=== PATIENT | female | born 1930 | race Caucasian/White ===

== ENCOUNTER 2016-11-02 09:25 | Inpatient (IN) | payer OTHER ==
[~2016-11-02] VITALS: Ht 160 cm; Wt 60.3 kg
--- NOTE | 2016-11-02 10:34 | ED CARDIAC/CP/PALPITATIONS ---
History of Present Illness General Chief Complaint: Chest Pain Stated Complaint: CHEST PAIN LAST NIGHT Source: patient Exam Limitations: no limitations Vital Signs & Intake/Output Vital Signs & Intake/Output Vital Signs Date Time Temp Pulse Resp B/P Pulse O2 O2 Flow FiO2 Ox Delivery Rate 11/02 1152 57 20 153/98 95 Nasal 2.0L Cannula 11/02 0939 98.4 65 16 166/79 95 Room Air Allergies Coded Allergies: No Known Allergies (11/02/16) Reconcile Medications Alprazolam 0.25 MG TABLET 1 TAB PO BIDP PRN ANXIETY (Reported) Aspirin (Aspirin*) 81 MG TAB.CHEW 1 TAB PO DAILY HEART HEALTH Ca/D3/Mag#11/Zinc/Computerized Mill Mill Recorder/Skinny/Bor (Caltrate 600+D Plus Tablet) 600 MG-800 TABLET 1 TAB PO DAILY SUPPLEMENT (Reported) Cholecalciferol (Vitamin D3) (Vitamin D) 5,000 UNIT TABLET 1 TAB PO DAILY VITAMIN D (Reported) Levothyroxine Sodium 75 MCG TABLET 1 TAB PO DAILY HYPOTHYROIDISM (Reported) Omeprazole 20 MG CAPSULE.DR 1 TAB PO AT BEDTIME HEART BURN Triage Note: PT STATES SHE HASN'T BEEN SLEEPING AT NIGHT BECAUSE SHE HAS BEEN HAVING CHEST PALPATATIONS WHEN SHE LAYS DOWN. PT DID HAVE SYNCOPAL EPISODE THIS AM AND WAS CAUGHT BY HER GRANDSON. PT DENIES ANY CARDIAC HX. PT HAD A BLADDER INFECTION AND STATES SHE WAS ON ABX AND JUST GOT OVER THAT. Triage Nurses Notes Reviewed? yes Onset: Abrupt Duration: week(s): (1), waxing and waning Timing: recent history Quality/Severity: moderate Associated Symptoms: abdominal pain, syncope, chest pain HPI: This is an 86 over female with history of hypertension and hypothyroidism who presents from home for chief complaint of chest pain that she experiences at night for the past one week. This morning she had a syncopal episode. No head trauma. According to the daughter she started complaining of heartburn initially rated no history of cardiac disease that she knows of. She is a nonsmoker nondrinker. Currently her chest pain has resolved. She states that when she walks around during the daytime or chest pain gets better. Past History Travel History Traveled to [place] past 21 day No Medical History Any Pertinent Medical History? see below for history Cardiovascular: hypertension Psychiatric: anxiety Endocrine: hypothyroidism Surgical History Surgical History: non-contributory Psychosocial History What is your primary language Somali Tobacco Use: Never used ETOH Use: denies use Illicit Drug Use: denies illicit drug use Family History Hx Contributory? No Review of Systems Review of Systems Constitutional: Reports: malaise. Denies: chills, fever. EENTM: Reports: no symptoms. Respiratory: Denies: cough, short of breath, sputum production. Cardiovascular: Reports: chest pain, syncope. Denies: edema, palpitations, peripheral edema. GI: Denies: abdominal pain. Genitourinary: Reports: no symptoms. Musculoskeletal: Reports: no symptoms. Skin: Reports: no symptoms. Neurological/Psychological: Reports: no symptoms. Hematologic/Endocrine: Denies: bruising, bleeding, polyuria, polydipsia. Immunologic/Allergic: Denies: splenectomy. All Other Systems: Reviewed and Negative Physical Exam Physical Exam General Appearance: alert, awake, anxious, mild distress, thin Head: atraumatic, normal appearance Eyes: Bilateral: normal appearance, PERRL, EOMI. Ears, Nose, Throat: normal pharynx, normal ENT inspection Neck: normal inspection, supple, full range of motion Respiratory: normal breath sounds, chest non-tender, no respiratory distress Cardiovascular: regular rate/rhythm Peripheral Pulses: 2+ radial (R), 2+ radial (L) Gastrointestinal: normal bowel sounds, soft, non-tender Extremities: normal inspection, normal range of motion, no edema Neurologic/Psych: no motor/sensory deficits, awake, alert, oriented x 3 Skin: intact, normal color, warm/dry Core Measures ACS in differential dx? Yes ASA ordered for poss ACS? Yes-ordered Severe Sepsis Present: No Septic Shock Present: No Progress Differential Diagnosis: AMI, aortic dissection, musculoskeletal pain, myocarditis, pericarditis, pneumothorax, pulmonary embolism, unstable angina, WPW syndrome Plan of Care: Orders Procedure Date/time Status Heart Healthy Diet 11/02 D Active TROPONIN LEVEL 11/02 2200 Active EKG 11/02 2200 Active TROPONIN LEVEL 11/02 1600 Active EKG 11/02 1600 Active CTA CHEST-PULMONARY EMBOLISM 11/02 1254 Active [id number] DOPPLER 11/02 1238 Active ECHOCARDIOGRAM 11/02 1238 Active Saline Lock 11/02 1235 Active Pathway - chart 11/02 1235 Active House Staff 11/02 1235 Active Patient Data 11/02 1159 Active Admit to inpatient 11/02 1157 Active Vital Signs 11/02 1157 Active Code Status 11/02 1157 Active Add-on Test (ER Only) 11/02 1126 Active FingerStick- Glucose 11/02 1048 Active THYROID STIMULATING HORMONE 11/02 1039 Active THYROXINE 11/02 1039 Active LIPID PANEL 11/02 1039 Active GLYCOSYLATED HGB 11/02 1039 Active D-DIMER 11/02 1039 Complete MISTAKE 11/02 1035 Active Telemetry/Erp Consultant 11/02 1035 Active URINALYSIS 11/02 1035 Active TROPONIN LEVEL 11/02 1035 Active PARTIAL THROMBOPLASTIN TIME 11/02 1035 Complete PROTHROMBIN TIME 11/02 1035 Complete COMPREHENSIVE METABOLIC PANEL 11/02 1035 Active CBC WITHOUT DIFFERENTIAL 11/02 1035 Complete EKG 11/02 0926 Active Lab Add-on Test 11/02 UNK Active VTE Mechanical Prophylaxis 11/02 UNK Active Heat/Cold Therapy 11/02 UNK Active Current Medications Sig/[place] Start time Last Medication Dose Stop Time Status Admin Aspirin 81 MG DAILY 11/03 1000 AC (Aspirin) Metoprolol Tartrate 25 MG DAILY 11/03 1000 UNVr (Lopressor) Levothyroxine Sodium 0.075 MG DAILY AC 11/03 0700 AC (Synthroid) Docusate Sodium 100 MG BID 11/02 2200 AC (Colace) Polyethylene Glycol 17 GM AT BEDTIME 11/02 2200 AC (Miralax) Senna/Docusate Sodium 1 TAB AT BEDTIME 11/02 2200 AC (Senokot S) Acetaminophen 650 MG Q6P PRN 11/02 1245 AC (Tylenol) Acetaminophen/ 1 TAB Q6P PRN 11/02 1245 AC Hydrocodone Bitart (Vicodin) Diphenhydramine HCl 25 MG Q6P PRN 11/02 1245 AC (Benadryl) Hydromorphone HCl 0.5 MG Q4P PRN 11/02 1245 AC (Dilaudid) Ondansetron HCl 4 MG Q6P PRN 11/02 1245 AC (Zofran) Laboratory Tests 11/02/16 1039: Hemoglobin A1c Pending 11/02/16 1039: Anion Gap 12, Estimated GFR 43 L, BUN/Creatinine Ratio 30.0 H, Glucose 86, Calcium 9.6, Total Bilirubin 0.5, AST 49 H, ALT 49, Alkaline Phosphatase 81, Troponin I 0.16 *H, Total Protein 7.3, Albumin 4.0, Globulin 3.3, Albumin/ Globulin Ratio 1.2, Triglycerides 365 H, Cholesterol 241 H, LDL Cholesterol, Calc 133 H, HDL Cholesterol 35 L, Cholesterol/HDL Ratio 7 H, TSH Pending, Thyroxine (T4) Pending, PT 10.8, INR 1.03, APTT 30, D-Dimer 2608 H, CBC w Diff NO MAN DIFF REQ, RBC 4.03 L, MCV 93.4, MCH 31.8 H, RDW 13.6, MPV 8.3, Gran % 59.6, Lymphocytes % 24.7, Monocytes % 13.1 H, Eosinophils % 1.9, Basophils % 0.7, Absolute Granulocytes 3.6, Absolute Lymphocytes 1.5, Absolute Monocytes 0.8 H, Absolute Eosinophils 0.1, Absolute Basophils 0, PUBS MCHC 34.1 EKG, TELE MONITOR, LABS. CHEST PAIN FREE AT THIS TIME. ELEVATED TROPONIN. ASPIRIN ORDERED. DR COMBS CONSULTED. PATIENT ADMITTED TO HOSPITALIST SERVICE. (RADHA PERSON,ESTHELA) Diagnostic Imaging: Viewed by Me: Radiology Read, CT Scan. Discussed w/RAD: Radiology Read, CT Scan. Initial ED EKG: NSR, LAD, LAFB Rhythm Strip: normal sinus rhythm Comments: PATIENT: TAMMIE REESE PRESENT AGE: 86 PATIENT ACCOUNT NO: [id number] : 30 LOCATION: [facility] ORDERING PHYSICIAN: ESTHELA GARCIA MD SERVICE DATE: 11/02/16 EXAM TYPE: RAD - XRY-CHEST XRAY, PA AND LATERAL Addendum: IMPRESSION: No acute findings; no evidence of cardiomegaly or congestive heart failure. Addendum Signed by: AMY ALONSO MD 11/02/16 1298 EXAMINATION: XR CHEST CLINICAL INFORMATION: Chest pain and syncope. COMPARISON: None. TECHNIQUE: PA and lateral views of the chest were obtained. FINDINGS: Lungs are well expanded and clear. There is no pulmonary consolidation, edema or pleural effusion. Cardiac silhouette is normal in size. There is atherosclerotic calcification of the aortic arch. Bones appear diffusely osteopenic and there is hyperkyphosis and dextroscoliosis of the thoracic spine. There is [id number] multilevel disc space narrowing and osteophyte formation in the mid to upper thoracic spine. IMPRESSION: No acute findings; evidence of cardiomegaly or congestive heart failure. DICTATED BY: AMY ALONSO MD DATE/TIME DICTATED:11/02/161103 CONSTRUCTION AREA MANAGER:JENNIFER DATE/TIME TRANSCRIBED:11/02/161103 CONFIDENTIAL, DO NOT COPY WITHOUT APPROPRIATE AUTHORIZATION. <Electronically signed in Other Vendor System> SIGNED BY: AMY ALONSO MD 11/02/16 1111 PATIENT: TAMMIE REESE PRESENT AGE: 86 PATIENT ACCOUNT NO: [id number] : 30 LOCATION: [facility] ORDERING PHYSICIAN: ESTHELA GARCIA MD SERVICE DATE: 11/02/16 EXAM TYPE: CAT - CTA CHEST-PULMONARY EMBOLISM EXAMINATION: CT ANGIOGRAM OF THE CHEST WITH CONTRAST (CT PULMONARY ANGIOGRAM FOR PE) CLINICAL INFORMATION: 86-year-old female with syncope and elevated troponin level. Evaluate for pulmonary embolism. COMPARISON: No pertinent prior studies are available for comparison. TECHNIQUE: Prior to contrast administration, noncontrast localization images were obtained. Subsequently, multidetector volumetric imaging was performed from the thoracic inlet to below the diaphragms following the administration of 95 mL of Optiray 320 intravenous contrast. No contrast reaction reported. Sagittal, coronal, and MIP oblique sagittal reformatted images were obtained on the CT workstation, uploaded to PACS, and reviewed. Total exam dose-length product 206 mGy-cm FINDINGS: QUALITY OF STUDY/CONTRAST BOLUS: Excellent. PULMONARY ARTERIES: Pulmonary arteries are normal in caliber. No filling defects within the main, lobar or segmental vessels. THORACIC AORTA: There is atherosclerotic calcification of the thoracic aorta. The contrast bolus was well timed for pulmonary arteries and, therefore, there is suboptimal opacification of the aortic lumen. However, no aortic dissection is identified. LUNGS AND PLEURA: Trachea and central airways are widely patent and normal in caliber. No pulmonary edema, focal consolidation, pleural effusion or pneumothorax. Mild atelectasis in the dependent aspect of each lower lobe. MEDIASTINUM: The heart size is normal. Aetr-pl-xtzztscs atherosclerotic calcification of the coronary arteries. No pericardial effusion. No evidence of septal bowing or right heart strain. The visualized inferior portion of the thyroid gland is atrophied. The esophagus is grossly unremarkable. LYMPHATICS: No axillary, hilar, mediastinal or internal mammary lymphadenopathy. UPPER ABDOMEN: No acute findings. There is atherosclerotic calcification of the visualized abdominal aorta and splenic artery. OSSEOUS STRUCTURES: Bones appear diffusely osteopenic. Multilevel disc degeneration with osteophyte formation of the hyperkyphotic thoracic spine. No aggressive osseous lesions. There is a hemangioma of the T9 vertebral body and small hemangioma of the T11 vertebral body. IMPRESSION: No acute findings. No evidence of pulmonary embolism. DICTATED BY: AMY ALONSO MD DATE/TIME DICTATED:11/02/161324 CONSTRUCTION AREA MANAGER:JENNIFER DATE/TIME TRANSCRIBED:11/02/161324 CONFIDENTIAL, DO NOT COPY WITHOUT APPROPRIATE AUTHORIZATION. <Electronically signed in Other Vendor System> SIGNED BY: AMY ALONSO MD 11/02/16 1339 Departure Departure Time of Disposition: 1154 Disposition: STILL A PATIENT Condition: Stable Clinical Impression Primary Impression: NSTEMI (non-ST elevated myocardial infarction) Secondary Impressions: Syncope Referrals: JANIE PERSON,JULIO CÉSAR Jewell (PCP/Family) Referred to [facility] as new patient No Departure Forms: Customer Survey General Discharge Information Prescriptions: Current Visit Scripts Aspirin (Aspirin*) 1 TAB PO DAILY #30 Omeprazole 1 TAB PO AT BEDTIME #30 Admission Note Spoke With: ANA BRUSH M.D Documentation of Exam: Documentation of any treatments & extenuating circumstances including Concerns Regarding Discharge (functional status, medication knowledge or non-compliance, living conditions, etc.) that warrant an admission rather than observation: [ TELE MONITOR, OXYGEN, ASPIRIN, ECHOCARDIOGRAM, SERIAL EKG, SERIAL TROPONIN, STRESS TEST] Critical Care Note Critical Care Note Critical Care Time: 30-74 min
[2016-11-02 10:59] LABS: ABSOLUTE BASOPHIL COUNT 0 /CUMM (0.0-0.2); ABSOLUTE EOSINOPHIL COUNT 0.1 /CUMM (0.0-0.7); ABSOLUTE GRANULOCYTE CT 3.6 /CUMM (1.4-6.5); ABSOLUTE LYMPH COUNT 1.5 /CUMM (1.2-3.4); ABSOLUTE MONOCYTE COUNT 0.8 /CUMM (0.10-0.60); BASOPHIL % 0.7 % (0.0-2.0); EOSINOPHIL % 1.9 % (0-5); GRANULOCYTE % 59.6 % (42.2-75.2); HEMATOCRIT 37.7 % (37-47); MEAN CORPUSCULAR HGB 31.8 PG (27.0-31.0); MEAN CORPUSCULAR HGB CONC 34.1 G/DL (33.0-37.0); MEAN CORPUSCULAR VOLUME 93.4 FL (81.0-99.0); MEAN PLATELET VOLUME 8.3 FL (7.4-10.4); PLATELET COUNT 220 /CUMM (130-400); PT 10.8 SEC (9.4-12.5); PTT 30 SEC (25-37); RBC DISTRIBUTION WIDTH 13.6 % (11.5-14.5); RED BLOOD CELL CT 4.03 /CUMM (4.20-5.40); WHITE BLOOD CELL COUNT 6.1 /CUMM (4.8-10.8)
--- NOTE | 2016-11-02 11:11 | RADIOLOGY REPORT ---
EXAMINATION: XR CHEST CLINICAL INFORMATION: Chest pain and syncope. COMPARISON: None. TECHNIQUE: PA and lateral views of the chest were obtained. FINDINGS: Lungs are well expanded and clear. There is no pulmonary consolidation, edema or pleural effusion. Cardiac silhouette is normal in size. There is atherosclerotic calcification of the aortic arch. Bones appear diffusely osteopenic and there is hyperkyphosis and dextroscoliosis of the thoracic spine. There is [id number]-[id number] multilevel disc space narrowing and osteophyte formation in the mid to upper thoracic spine. IMPRESSION: No acute findings; evidence of cardiomegaly or congestive heart failure.
--- NOTE | 2016-11-02 12:28 | History & Physical ---
HIEN PERSON,[facility] 11/02/16 1227: General Information and HPI History of Present Illness: Bambi Kim is a a sexual woman with a medical history of hypertension hypothyroidism and anxiety who complains of approximately one week of chest discomfort while lying recumbent and only occurs at night, accompanied by palpitations. This is the total lack of sleep. This morning she had an episode of syncope without any prodrome. She also complains of symptoms of acid reflux. She is chest pain-free right now. Circumstances were syncope occurred in the kitchen, her nephew was witnessed fall, apparently she did not injure her head. She is drinking water and was not exerting herself. She had no chest pain or palpitations prior to that. She is recently treated for a UTI with Bactrim. She is able to sleep flat, and the chest pain is intermittent. Chest pain does change with position, worsening when she lies recumbent and improving when she is leaning forward. She is pretty activated 6-year-old, working out at the gym 3 times a week and reports no chest pain with exertion. She denies any lower extremity swelling cough nausea vomiting diarrhea or lightheadedness visual change or any other symptoms after reviewing detail. She does relate a history of clots and heart attacks in her family, her daughter has had 2 early myocardial infarctions and a clotting disorder and sees a ore dryer. The patient herself denies any calf pain. She sees only her primary doctor, and has thus far been able to avoid seeing any specialists and has been in overall good state of health Allergies/Medications Allergies: Coded Allergies: No Known Allergies (11/02/16) Past History Travel History Traveled to [place] past 21 day No Medical History Cardiovascular: hypertension Psychiatric: anxiety Endocrine: hypothyroidism Surgical History Surgical History: none Past Family/Social History Family History Relations & Conditions if any DAUGHTER Acute myocardial infarction Blood clots Psychosocial History Where do you live? Home Who Do You Live With? spouse Primary Language: Syrian Smoking Status: Never Smoked ETOH Use: denies use Illicit Drug Use: denies illicit drug use Review of Systems Review of Systems Constitutional: Denies: see HPI. Exam & Diagnostic Data Last 24 Hrs of Vital Signs/I&O Vital Signs Date Time Temp Pulse Resp B/P Pulse O2 O2 Flow FiO2 Ox Delivery Rate 11/02 1444 97.8 64 20 108/60 96 Room Air 11/02 1152 57 20 153/98 95 Nasal 2.0L Cannula 11/02 0939 98.4 65 16 166/79 95 Room Air Intake & Output 11/02 1600 11/02 0800 11/02 0000 Intake Total Output Total Balance Patient 133 lb Weight Physical Exam General Appearance Alert, Oriented X3, Cooperative, No Acute Distress Skin No Rashes, No Breakdown, No Significant Lesion HEENT Atraumatic, PERRLA, EOMI, Mucous Membr. moist/pink Neck Supple, No JVD, No thryomegaly, +2 Carotid Pulse wo Bruit, No LAD Lymphatic Cervical nl Cardiovascular Regular Rate, Normal S1, Normal S2, No Murmurs, Gallops, Rubs Lungs Clear to Auscultation, Normal Air Movement Abdomen Normal Bowel Sounds, Soft, No Tenderness, No Hepatospenomegaly, No Masses Neurological Normal Speech, Strength at 5/5 X4 Ext, Normal Tone Extremities No Clubbing, No Cyanosis, No Edema, Normal Pulses, No Tenderness/ Swelling Vascular Normal Pulses Last 24 Hrs of Labs/Carl: Laboratory Tests 11/02/16 1039: Hemoglobin A1c Pending 11/02/16 1039: Anion Gap 12, Estimated GFR 43 L, BUN/Creatinine Ratio 30.0 H, Glucose 86, Calcium 9.6, Total Bilirubin 0.5, AST 49 H, ALT 49, Alkaline Phosphatase 81, Troponin I 0.16 *H, Total Protein 7.3, Albumin 4.0, Globulin 3.3, Albumin/ Globulin Ratio 1.2, Triglycerides 365 H, Cholesterol 241 H, LDL Cholesterol, Calc 133 H, HDL Cholesterol 35 L, Cholesterol/HDL Ratio 7 H, TSH 2.550, Thyroxine (T4) 6.3, PT 10.8, INR 1.03, APTT 30, D-Dimer 2608 H, CBC w Diff NO MAN DIFF REQ, RBC 4.03 L, MCV 93.4, MCH 31.8 H, RDW 13.6, MPV 8.3, Gran % 59.6 , Lymphocytes % 24.7, Monocytes % 13.1 H, Eosinophils % 1.9, Basophils % 0.7, Absolute Granulocytes 3.6, Absolute Lymphocytes 1.5, Absolute Monocytes 0.8 H, Absolute Eosinophils 0.1, Absolute Basophils 0, PUBS MCHC 34.1 Diagnostic Data EKG Results Sinus with CXR Results TECHNIQUE: PA and lateral views of the chest were obtained. FINDINGS: Lungs are well expanded and clear. There is no pulmonary consolidation, edema or pleural effusion. Cardiac silhouette is normal in size. There is atherosclerotic calcification of the aortic arch. Bones appear diffusely osteopenic and there is hyperkyphosis and dextroscoliosis of the thoracic spine. There is [id number] multilevel disc space narrowing and osteophyte formation in the mid to upper thoracic spine. IMPRESSION: No acute findings; evidence of cardiomegaly or congestive heart failure. Other Results COMPARISON: No pertinent prior studies are available for comparison. TECHNIQUE: Prior to contrast administration, noncontrast localization images were obtained. Subsequently, multidetector volumetric imaging was performed from the thoracic inlet to below the diaphragms following the administration of 95 mL of Optiray 320 intravenous contrast. No contrast reaction reported. Sagittal, coronal, and MIP oblique sagittal reformatted images were obtained on the CT workstation, uploaded to PACS, and reviewed. Total exam dose-length product 206 mGy-cm FINDINGS: QUALITY OF STUDY/CONTRAST BOLUS: Excellent. PULMONARY ARTERIES: Pulmonary arteries are normal in caliber. No filling defects within the main, lobar or segmental vessels. THORACIC AORTA: There is atherosclerotic calcification of the thoracic aorta. The contrast bolus was well timed for pulmonary arteries and, therefore, there is suboptimal opacification of the aortic lumen. However, no aortic dissection is identified. LUNGS AND PLEURA: Trachea and central airways are widely patent and normal in caliber. No pulmonary edema, focal consolidation, pleural effusion or pneumothorax. Mild atelectasis in the dependent aspect of each lower lobe. MEDIASTINUM: The heart size is normal. [id number] atherosclerotic calcification of the coronary arteries. No pericardial effusion. No evidence of septal bowing or right heart strain. The visualized inferior portion of the thyroid gland is atrophied. The esophagus is grossly unremarkable. LYMPHATICS: No axillary, hilar, mediastinal or internal mammary lymphadenopathy. UPPER ABDOMEN: No acute findings. There is atherosclerotic calcification of the visualized abdominal aorta and splenic artery. OSSEOUS STRUCTURES: Bones appear diffusely osteopenic. Multilevel disc degeneration with osteophyte formation of the hyperkyphotic thoracic spine. No aggressive osseous lesions. There is a hemangioma of the T9 vertebral body and small hemangioma of the T11 vertebral body. IMPRESSION: No acute findings. No evidence of pulmonary embolism. Assessment/Plan Assessment: Bambi Kim is a 86 -year-old woman with a medical history of hypertension hypothyroidism and anxiety who presents with chest discomfort that occurs with lying recumbent in changes with position, and is pleuritic. Although not hypoxic, she is having elevated troponin, and a d-dimer. Initial CAT scan did not show any pulmonary embolus, and physical examination wasn't consistent with a lower shotty DVT however this is not specific enough. This patient given her age and presentation and positive enzymes should have further workup and monitoring the next 24-48 hours on telemetry. Differential should include acute coronary syndrome pericarditis DVT or pleurisy due to a host of other causes such as autoimmune disease or occult malignancy. An elevated d- dimer in the absence of other processes may be a herald of underlying malignant disease. Outpatient records including colonoscopy should be obtained. - Problems - Acute chest pain Non-ST elevation myocardial infarction Elevated d-dimer? Malignancy versus autoimmune disorder Hypertension Hypothyroidism Anxiety disorder - Plan - Continues cardiac monitoring Obtain serial enzymes and EKG Obtain echocardiogram Obtain Doppler ultrasound of lower extremities to rule out DVT Guaiac all stool Await cardiology consultation Continue metoprolol 25 mg twice a day Continue Synthroid Check TSH T4 Continue alprazolam DVT prophylaxis with heparin Full code As Ranked By This Provider Problem List: 1. NSTEMI (non-ST elevated myocardial infarction) Core Measures/Miscellaneous Acute Coronary Syndrome ACS Diagnosis: Yes Cerebrovascular Accident CVA/TIA Diagnosis: No Congestive Heart Failure CHF Diagnosis: No Venous Thromboembolism VTE Risk Factors: Cancer/chemo/oth therapy VTE Prophylaxis Ordered Inpt: [facility] prophylaxis d/t: No contraindications No VTE Pharm Prophylaxis d/t: No contraindications VTE Diagnosis: No VTE Type: NONE VTE Confirmed by (Test): NONE Severe Sepsis Severe Sepsis Present: No Septic Shock Septic Shock Present: No Miscellaneous Documentation Attending Case Discussed With: ANA BRUSH M.D Primary Care Physician: JULIO CÉSAR LIMA MD Patient sees these Specialists None Level of Patient Care: Telemetry ANA BRUSH MD 11/02/16 1452: General Information and HPI Allergies/Medications Home Med list Alprazolam 0.25 MG TABLET 1 TAB PO BIDP PRN ANXIETY (Reported) Aspirin (Aspirin*) 81 MG TAB.CHEW 1 TAB PO DAILY Prized Ca/D3/Mag#11/Zinc/Home Health Attendant/Skinny/Bor (Caltrate 600+D Plus Tablet) 600 MG-800 TABLET 1 TAB PO DAILY SUPPLEMENT (Reported) Cholecalciferol (Vitamin D3) (Vitamin D) 5,000 UNIT TABLET 1 TAB PO DAILY VITAMIN D (Reported) Levothyroxine Sodium 75 MCG TABLET 1 TAB PO DAILY HYPOTHYROIDISM (Reported) Omeprazole 20 MG CAPSULE. 1 TAB PO AT BEDTIME HEART BURN Attending MD Review Statement Attending Statement Attending MD Statement: examined this patient, discuss w/resident/PA/SINGLE FOLD MACHINE OPERATOR, agreed w/resident/PA/SINGLE FOLD MACHINE OPERATOR, discussed with family, reviewed EMR data (avail), discussed with nursing, discussed with case mgmt, amended to note Attending Assessment/Plan: Patient seen and examined. Resting comfortably and not in acute distress. She reports pleuritic chest pain going on for about a week. Symptoms are worse when she lies down and relieved when she leans forward. Denies any associated shortness of breath or cough. Denies any associated palpitations. Denies similar history in the past. She was brought into the ER for evaluation today after she had an episode of syncope this morning. She was standing drinking water when suddenly without any history passed out falling to the floor. Because the head trauma. She was brought in here for evaluation. She arises afebrile hemodynamically stable. She denies any chest pain or focal pain. Emergency room she was found hemodynamically stable with no ischemic changes on her EKG. Initial troponin level is mildly elevated. D-dimer was obtained that was markedly elevated however CT scan rules out thromboembolism. On examination she is alert and 1993 no focal deficit. She has no jugular venous distention. She has a 2/6 systolic normal. She has fair entry bilaterally with no added sounds. Abdomen is soft and nontender. She has no peripheral edema. Problems: 1. Pleuritic chest pain going on for 1 week. 2. Abnormal troponins 3. Abnormal creatinine; unknown baseline 4. Syncope Plan: -Admit to telemetry service for further cardiac monitoring. -Trend troponins. Check fasting lipid panel in the morning. -Obtain echocardiogram to rule out pericarditis and evaluate for wall motion abnormalities in the setting of subacute chest pain and elevated troponins as well as valvular abnormalities in the setting of syncope -Cardiology consultation for further ischemic workup. -Hydrate with half normal saline at 100 mL an hour for 2 L giving her contrast load and underlining renal insufficiency. Repeat serum chemistry tomorrow. Obtain baseline creatinine level from her primary care provider. -DVT prophylaxis with
[2016-11-02] MEDS ORDERED: ALPRAZOLAM0.25 M1 PO (13:16)
[2016-11-02] MEDS ORDERED: METOPROLOL TART25 M1 PO (13:17)
[2016-11-02] MEDS ORDERED: LEVOTHYROXINE75 MCG PO (13:17)
[2016-11-02] MEDS ORDERED: CALTRATE 600+D1 EACH PO (13:18)
[2016-11-02] MEDS ORDERED: VITAMIN D5000 UNIT PO (13:19)
--- NOTE | 2016-11-02 13:39 | CT SCAN REPORT ---
EXAMINATION: CT ANGIOGRAM OF THE CHEST WITH CONTRAST (CT PULMONARY ANGIOGRAM FOR PE) CLINICAL INFORMATION: 86-year-old female with syncope and elevated troponin level. Evaluate for pulmonary embolism. COMPARISON: No pertinent prior studies are available for comparison. TECHNIQUE: Prior to contrast administration, noncontrast localization images were obtained. Subsequently, multidetector volumetric imaging was performed from the thoracic inlet to below the diaphragms following the administration of 95 mL of Optiray 320 intravenous contrast. No contrast reaction reported. Sagittal, coronal, and MIP oblique sagittal reformatted images were obtained on the CT workstation, uploaded to PACS, and reviewed. Total exam dose-length product 206 mGy-cm FINDINGS: QUALITY OF STUDY/CONTRAST BOLUS: Excellent. PULMONARY ARTERIES: Pulmonary arteries are normal in caliber. No filling defects within the main, lobar or segmental vessels. THORACIC AORTA: There is atherosclerotic calcification of the thoracic aorta. The contrast bolus was well timed for pulmonary arteries and, therefore, there is suboptimal opacification of the aortic lumen. However, no aortic dissection is identified. LUNGS AND PLEURA: Trachea and central airways are widely patent and normal in caliber. No pulmonary edema, focal consolidation, pleural effusion or pneumothorax. Mild atelectasis in the dependent aspect of each lower lobe. MEDIASTINUM: The heart size is normal. [id number] atherosclerotic calcification of the coronary arteries. No pericardial effusion. No evidence of septal bowing or right heart strain. The visualized inferior portion of the thyroid gland is atrophied. The esophagus is grossly unremarkable. LYMPHATICS: No axillary, hilar, mediastinal or internal mammary lymphadenopathy. UPPER ABDOMEN: No acute findings. There is atherosclerotic calcification of the visualized abdominal aorta and splenic artery. OSSEOUS STRUCTURES: Bones appear diffusely osteopenic. Multilevel disc degeneration with osteophyte formation of the hyperkyphotic thoracic spine. No aggressive osseous lesions. There is a hemangioma of the T9 vertebral body and small hemangioma of the T11 vertebral body. IMPRESSION: No acute findings. No evidence of pulmonary embolism.
[2016-11-02 14:44] VITALS: BP 108/60
--- NOTE | 2016-11-02 14:49 | Admission Certification ---
Admission Certification Certification Statement - As attending physician, I certify that at the time of - admission, based on clinical presentation, severity of - symptoms, need for further diagnostic testing and - therapeutic interventions, and risk of adverse outcomes - without in-hospital treatment, in my clinical assessment, - this patient requires an acute hospital stay for a minimum - of two nights or longer. I have also considered psychsocial - factors such as support system, advanced age, financial - issues, cognitive issues, and failed out-patient treatments, - past re-admission history, safety of patient, and lack of - compliance as applicable. Specific rationale supporting this admission is: Patient presents with chest pain, syncope and positive troponins. She requires further cardiac workup and telemetry monitoring.
[2016-11-02 15:30] VITALS: BP 104/70
--- NOTE | 2016-11-02 20:50 | Cons- Cardiology ---
General Information and HPI Consulting Request Date of Consult: 11/02/16 Requested By: ANA BRUSH M.D Reason for Consult: chest pain, syncope History of Present Illness: The patient is a an 86-year-old female with history of hypertension, anxiety, and hypothyroid who presents after syncopal episode with chest discomfort. On the morning of admission she had an episode of syncope without any prodrome. This syncope occurred while she was standing in the kitchen, and was witnessed by family member. This was preceded by 1 week of chest discomfort which occurred while lying flat, accompanied by palpitations. The chest discomfort is worse when continue recumbent position, and improved with leaning forward. She is physically active. She works out at the gym 3 times per week. No exertional chest discomfort. No edema. No cough. No nausea or vomiting. No diaphoresis. No lightheadedness or dizziness. Allergies/Medications Allergies: Coded Allergies: No Known Allergies (11/02/16) Home Med List: Alprazolam 0.25 MG TABLET 1 TAB PO BIDP PRN ANXIETY (Reported) Aspirin (Aspirin*) 81 MG TAB.CHEW 1 TAB PO DAILY [place] Ca/D3/Mag#11/Zinc/Pipelayer/Skinny/Bor (Caltrate 600+D Plus Tablet) 600 MG-800 TABLET 1 TAB PO DAILY SUPPLEMENT (Reported) Cholecalciferol (Vitamin D3) (Vitamin D) 5,000 UNIT TABLET 1 TAB PO DAILY VITAMIN D (Reported) Levothyroxine Sodium 75 MCG TABLET 1 TAB PO DAILY HYPOTHYROIDISM (Reported) Omeprazole 20 MG CAPSULE.DR 1 TAB PO AT BEDTIME HEART BURN Current Medications: Current Medications Sig/[place] Start time Last Medication Dose Route Stop Time Status Admin Acetaminophen 650 MG Q6P PRN 11/02 1245 AC PO Acetaminophen/ 1 TAB Q6P PRN 11/02 1245 AC Hydrocodone Bitart PO Alprazolam 0.25 MG Q12 11/02 1316 AC 11/02 PO 11/09 1315 2115 Aspirin 81 MG DAILY 11/03 1000 AC PO Aspirin 0 .STK-MED ONE 11/02 1157 DC PO Aspirin 325 MG ONCE ONE 11/02 1145 DC 11/02 PO 11/02 1146 1158 Cholecalciferol 5,000 IU DAILY 11/03 1000 AC PO Diphenhydramine HCl 25 MG Q6P PRN 11/02 1245 AC IV Docusate Sodium 100 MG BID 11/02 220 AC PO Heparin Sodium 5,000 UNIT Q8 11/02 2200 AC 11/02 (Porcine) SC 2115 Hydromorphone HCl 0.5 MG Q4P PRN 11/02 1245 AC IV Levothyroxine Sodium 0.075 MG DAILY AC 11/03 0700 AC PO Melatonin 3 MG AT BEDTIME 11/03 2200 AC 11/02 PO 2309 Metoprolol Tartrate 25 MG BID 11/03 1000 AC PO Omeprazole 20 MG DAILY AC 11/03 0700 AC 11/02 PO 2234 Ondansetron HCl 4 MG Q6P PRN 11/02 1245 AC IV Polyethylene Glycol 17 GM AT BEDTIME 11/02 220 AC PO Senna/Docusate Sodium 1 TAB AT BEDTIME 11/02 2199 AC PO Sodium Chloride 1,000 ML .[id number] 11/02 1515 AC 11/02 IV 11/03 1754 1547 Review of Systems Review of Systems: Review of systems: No fever. No chills. No rash. No tremor. No diaphoresis. All other systems are reviewed and are noted to be negative. Past History Travel History Traveled to [place] past 21 day No Medical History Blood Transfusion Hx: No Cardiovascular: hypertension Psychiatric: anxiety Endocrine: hypothyroidism Surgical History Surgical History: none Family History Relations & Conditions If Any: DAUGHTER Acute myocardial infarction Blood clots Psychosocial History Where Do You Live? Home Who Do You Live With? spouse Services at Home: None Primary Language: Maltese Smoking Status: Never Smoked ETOH Use: denies use Illicit Drug Use: denies illicit drug use Exam & Diagnostic Data Vital Signs and I&O Vital Signs Date Time Temp Pulse Resp B/P Pulse O2 O2 Flow FiO2 Ox Delivery Rate 11/03 0029 97.1 68 20 140/80 94 Room Air 11/02 1530 97.8 65 20 104/70 97 11/02 1444 97.8 64 20 108/60 96 Room Air 11/02 1152 57 20 153/98 95 Nasal 2.0L Cannula 11/02 0939 98.4 65 16 166/79 95 Room Air Intake & Output 11/03 0800 11/03 0000 11/02 1600 11/02 0811/02 0000 11/01 1600 Intake Total 1580 Output Total 600 Balance 980 Intake, IV 900 Intake, Oral 680 Number 1 Bowel Movements Output, Urine 600 Patient 133 lb Weight Physical Exam: Gen: The patient is in no acute distress HEENT: Normal nose, ears, and oropharynx. Pupils equal bilaterally. Conjunctiva normal. Neck: Supple with no JVD, no masses, and no thyromegaly Lungs: Clear to auscultation with normal respiratory effort Heart: RRR, S1, S2, no murmurs. No peripheral edema, 2+ pulses in the lower extremities bilaterally Abdomen: Soft, nontender, no masses. No hepatomegaly. No splenomegaly Extremities: No clubbing or cyanosis. Normal muscle strength in the upper and lower extremities. Skin: Normal skin turgor with no skin ulcers or lesions noted. Neuro: Cranial nerves intact. Sensation intact Psych: Alert and oriented 3 with appropriate affect Labs/Carl Results: Laboratory Tests 11/02 11/02 11/02 2145 1600 1543 Chemistry Troponin I (< 0.11 ng/ml) 0.17 *H 0.17 *H Urines Urine Color (YEL,AMB,STR) YEL Urine Clarity (CLEAR) CLEAR Urine pH (5.0 - 8.0) 6.5 Ur Specific [place] (1.001 - 1.035) 1.010 Urine Protein (NEG,<30 MG/DL) NEG Urine Ketones (NEG) NEG Urine Nitrite (NEG) NEG Urine Bilirubin (NEG) NEG Urine Urobilinogen (0.1 - 1.0 EU/dl) 0.2 Ur Leukocyte Esterase (NEG) SMALL H Ur Microscopic SEDIMENT EXAMINED Urine RBC (0 - 5 /HPF) RARE Urine WBC (0 - 2 /HPF) 3-5 H Ur Epithelial Cells (NONE,FEW) FEW Urine Mucus (FEW,NONE) RARE Urine Hemoglobin (NEG) NEG Urine Glucose (N MG/DL) NEG 11/02 11/02 1039 1039 Chemistry Sodium (137 - 145 mmol/L) 140 Potassium (3.5 - 5.1 mmol/L) 5.1 Chloride (98 - 107 mmol/L) 102 Carbon Dioxide (22 - 30 mmol/L) 25 Anion Gap (5 - 16) 12 BUN (7 - 17 mg/dL) 36 H Creatinine (0.5 - 1.0 mg/dL) 1.2 H Estimated GFR (>60 ml/min) 43 L BUN/Creatinine Ratio (7 - 25 %) 30.0 H Glucose (65 - 99 mg/dL) 86 Hemoglobin A1c Pending Calcium (8.4 - 10.2 mg/dL) 9.6 Total Bilirubin (0.2 - 1.3 mg/dL) 0.5 AST (14 - 36 U/L) 49 H ALT (9 - 52 U/L) 49 Alkaline Phosphatase (<127 U/L) 81 Troponin I (< 0.11 ng/ml) 0.16 *H Total Protein (6.3 - 8.2 g/dL) 7.3 Albumin (3.5 - 5.0 g/dL) 4.0 Globulin (1.9 - 4.2 gm/dL) 3.3 Albumin/Globulin Ratio (1.1 - 2.2 %) 1.2 Triglycerides (<150 mg/dL) 365 H Cholesterol (<200 MG/DL) 241 H LDL Cholesterol, Calc (65 - 129 mg/dL) 133 H HDL Cholesterol (40 - 60 mg/dL) 35 L Cholesterol/HDL Ratio (0.00 - 4.23 %) 7 H TSH (0.270 - 4.200 uIU/mL) 2.550 Thyroxine (T4) (4.5 - 10.9 ug/dL) 6.3 Coagulation PT (9.4 - 12.5 SEC) 10.8 INR (0.90 - 1.19) 1.03 APTT (25 - 37 SEC) 30 D-Dimer (70 - 232 ng/ml) 2608 H Hematology CBC w Diff NO MAN DIFF REQ WBC (4.8 - 10.8 /CUMM) 6.1 RBC (4.20 - 5.40 /CUMM) 4.03 L Hgb (12.0 - 16.0 G/DL) 12.8 Hct (37 - 47 %) 37.7 MCV (81.0 - 99.0 FL) 93.4 MCH (27.0 - 31.0 PG) 31.8 H RDW (11.5 - 14.5 %) 13.6 Plt Count (130 - 400 /CUMM) 220 MPV (7.4 - 10.4 FL) 8.3 Gran % (42.2 - 75.2 %) 59.6 Lymphocytes % (20.5 - 51.1 %) 24.7 Monocytes % (1.7 - 9.3 %) 13.1 H Eosinophils % (0 - 5 %) 1.9 Basophils % (0.0 - 2.0 %) 0.7 Absolute Granulocytes (1.4 - 6.5 /CUMM) 3.6 Absolute Lymphocytes (1.2 - 3.4 /CUMM) 1.5 Absolute Monocytes (0.10 - 0.60 /CUMM) 0.8 H Absolute Eosinophils (0.0 - 0.7 /CUMM) 0.1 Absolute Basophils (0.0 - 0.2 /CUMM) 0 PUBS MCHC (33.0 - 37.0 G/DL) 34.1 Diagnostic Data EKG Results EKG tracing is independently reviewed, and reveals normal sinus rhythm at 63, left axis deviation, possible left anterior fascicular block CXR Results Chest x-ray: Negative Other Results CTA chest: No evidence of pulmonary embolism. No acute findings. Assessment/Plan Assessment/Plan Assessment: 1. Hypertension 2. Hypothyroidism 3. Chest discomfort mostly pleuritic x1 week 4. Syncope, rule out cardiogenic etiology 5. Borderline troponin elevation. Recommendations: 1. Monitor on telemetry 2. Check serial troponin 3. Echocardiogram 4 Continue current cardiac medications Consult Acknowledgment - Thank you for your consult request.
[2016-11-03 00:29] VITALS: BP 140/80
[2016-11-03 07:48] LABS: ABSOLUTE BASOPHIL COUNT 0 /CUMM (0.0-0.2); ABSOLUTE EOSINOPHIL COUNT 0.2 /CUMM (0.0-0.7); ABSOLUTE LYMPH COUNT 1.4 /CUMM (1.2-3.4); ABSOLUTE MONOCYTE COUNT 0.6 /CUMM (0.10-0.60); BASOPHIL % 0.7 % (0.0-2.0); EOSINOPHIL % 3.1 % (0-5); GRANULOCYTE % 58.3 % (42.2-75.2); MEAN CORPUSCULAR HGB 31.8 PG (27.0-31.0); MEAN CORPUSCULAR HGB CONC 34.2 G/DL (33.0-37.0); MEAN CORPUSCULAR VOLUME 92.8 FL (81.0-99.0); MEAN PLATELET VOLUME 8.5 FL (7.4-10.4); PLATELET COUNT 208 /CUMM (130-400); RBC DISTRIBUTION WIDTH 13.6 % (11.5-14.5); RED BLOOD CELL CT 3.88 /CUMM (4.20-5.40); WHITE BLOOD CELL COUNT 5.2 /CUMM (4.8-10.8)
[2016-11-03 08:28] VITALS: BP 115/72
--- NOTE | 2016-11-03 09:17 | PN- Housestaff ---
CHRIS ROSENBAUM 11/03/16 0917: Subjective Follow-up For: Pleuritic chest pain Abnormal troponin Complaints: no complaints Tele-Events Since Last Visit: Normal sinus rhythm, rate 59-67, no events Subjective: Patient seen and examined. Offers no complaints. Denies headache, dizziness, lightheadedness, nausea, vomiting, chest pain, shortness of breath, abdominal pain, urinary symptoms. Vital signs stable. No overnight events reported. Review of Systems Constitutional: Denies: see HPI. Objective Last 24 Hrs of Vital Signs/I&O Vital Signs Date Time Temp Pulse Resp B/P Pulse O2 O2 Flow FiO2 Ox Delivery Rate 11/03 2121 63 92/60 11/03 1549 98.2 63 18 122/74 95 Room Air 11/03 1105 66 115/72 11/03 0828 99.7 66 16 115/72 94 Room Air 11/03 0029 97.1 68 20 140/80 94 Room Air Intake & Output 11/03 1600 11/03 0800 11/03 0000 Intake Total 7330 344 4796 Output Total 400 600 Balance 1200 320 980 Intake, IV 800 600 900 Intake, Oral 400 120 680 Number 1 1 Bowel Movements Output, Urine 400 600 Physical Exam General Appearance: Alert, Oriented X3, Cooperative, No Acute Distress Skin: No Rashes, No Breakdown, No Significant Lesion HEENT: Atraumatic, PERRLA, EOMI, Mucous Membr. moist/pink Neck: Supple, No JVD, No thryomegaly, +2 Carotid Pulse wo Bruit, No LAD Lymphatic: Axillary nl, Cervical nl Cardiovascular: Regular Rate, Normal S1, Normal S2, No Murmurs Lungs: Clear to Auscultation, Normal Air Movement Abdomen: Normal Bowel Sounds, Soft, No Tenderness, No Hepatospenomegaly, No Masses Neurological: Normal Speech, Strength at 5/5 X4 Ext, Normal Tone, Sensation Intact, Cranial Nerves 3-12 NL, Reflexes 2+ Extremities: No Clubbing, No Cyanosis, No Edema, Normal Pulses, No Tenderness/ Swelling Vascular: Normal Pulses, Pulses Symmetrical Current Medications: Current Medications Sig/[place] Start time Last Medication Dose Route Stop Time Status Admin Acetaminophen 650 MG Q6P PRN 11/02 1245 AC PO Acetaminophen/ 1 TAB Q6P PRN 11/02 1245 AC Hydrocodone Bitart PO Alprazolam 0.25 MG Q12 11/02 1316 AC 11/03 PO 11/09 1315 2125 Aspirin 81 MG DAILY 11/03 1000 AC 11/03 PO 0915 Cholecalciferol 5,000 IU DAILY 11/03 1000 AC 11/03 PO 0915 Diphenhydramine HCl 25 MG Q6P PRN 11/02 1245 AC IV Docusate Sodium 100 MG BID 11/02 2200 AC 11/03 PO 0915 Heparin Sodium 5,000 UNIT Q8 11/02 2200 AC 11/03 (Porcine) SC 2121 Hydromorphone HCl 0.5 MG Q4P PRN 11/02 1245 AC IV Levothyroxine Sodium 0.075 MG DAILY AC 11/03 0700 AC 11/03 PO 0631 Magnesium Oxide 400 MG ONE ONE 11/03 1630 DC 11/03 PO 11/03 1631 1713 Melatonin 3 MG AT BEDTIME 11/03 2200 AC 11/03 PO 2121 Melatonin 3 MG .STK-MED ONE 11/02 2306 DC PO 11/02 2307 Metoprolol Tartrate 25 MG BID 11/03 1000 AC 11/03 PO 1105 Omeprazole 20 MG AT BEDTIME 11/03 2200 AC 11/03 PO 2120 Omeprazole 20 MG DAILY AC 11/03 0700 DC 11/02 PO 2234 Omeprazole 20 MG .STK-MED ONE 11/02 2231 DC PO 11/02 2232 Ondansetron HCl 4 MG Q6P PRN 11/02 1245 AC IV Polyethylene Glycol 17 GM AT BEDTIME 11/02 2200 AC PO Senna/Docusate Sodium 1 TAB AT BEDTIME 11/02 220 AC PO Sodium Chloride 1,000 ML .[id number] 11/02 1515 DC 11/03 IV 11/03 1754 0432 Last 24 Hrs of Lab/Carl Results Last 24 Hrs of Labs/Mics: Laboratory Tests 11/03/16 0700: Anion Gap 10, Estimated GFR 39 L, BUN/Creatinine Ratio 26.2 H, Magnesium 1.8, Troponin I 0.13 *H, CBC w Diff NO MAN DIFF REQ, RBC 3.88 L, MCV 92.8, MCH 31.8 H, RDW 13.6, MPV 8.5, Gran % 58.3, Lymphocytes % 26.6, Monocytes % 11.3 H, Eosinophils % 3.1, Basophils % 0.7, Absolute Granulocytes 3.0, Absolute Lymphocytes 1.4, Absolute Monocytes 0.6, Absolute Eosinophils 0.2, Absolute Basophils 0, PUBS MCHC 34.2 11/02/16 2145: Troponin I 0.17 *H Assessment/Plan Assessment: This is a 86 -year-old lady with a medical history of hypertension hypothyroidism and anxiety who presented with pleuritic and positional chest discomfort for 1 week. She was noted to have elevated troponins. Problem list/plan #Pleuritic chest pain: * Patient had elevated troponins which trended down. Today she is chest pain- free. * Continue blog writer * Will appreciate cardiology recommendations * Follow-up echocardiogram * Continue with aspirin, beta jonathan #Syncope: * No events reported since admission * Continue with blog writer * Orthostatics * May benefit from outpatient Holter monitor. #Elevated creatinine: * Creatinine level of 1.2 on admission, increased to 1.3 today despite IV hydration * Will recheck levels tomorrow * Avoid nephrotoxin medications * Will obtain baseline from patient's PCP #DVT prophylaxis: * Subcutaneous heparin #Full code Problem List: 1. CHITRA (acute kidney injury) 2. Elevated troponin Pain Ratin Pain Location: NA Pain Goal: Remain pain free Pain Plan: Tylenol, Vicodin Tomorrow's Labs & Rationales: BEP to monitor creatinine level ANA BRUSH MD 11/03/16 1125: Attending MD Review Statement Attending Statement Attending MD Statement: examined this patient, discuss w/resident/PA/APPAREL PATTERNMAKER, agreed w/resident/PA/APPAREL PATTERNMAKER, discussed with family, reviewed EMR data (avail), discussed with nursing, amended to note Attending Assessment/Plan: Patient seen and examined. Resting comfortably and not in any acute distress. No issues overnight reported by nursing staff. No events on telemetry. She has remained in sinus rhythm with occasional sinus bradycardia as low as 59. She denies any chest pain since admission. She denies any shortness of breath or palpitations. She denies any pleurisy. She has remained afebrile and hemodynamically stable she is maintaining saturation of 94-97% on room air. On examination she has adequate entry bilaterally. Lungs are clear to auscultation. She has no JVD or evidence of volume overload. Problems: 1. Pleuritic chest pain going on for 1 week. 2. Abnormal troponins 3. Abnormal creatinine; unknown baseline 4. Syncope Plan: -Her troponin level has been flat and she is currently symptom-free. She has had no events on telemetry. -Follow-up echocardiogram to rule out pericardial inflammation. -If echocardiogram is negative, please follow-up with the cardiology service regarding need for further ischemic workup. -Mobilize patient as tolerated today. -Further recommendations pending echocardiogram results. She may benefit from more prolonged outpatient cardiac monitoring to further workup her syncope. -She has had a mild increase in her creatinine overnight despite IV hydration. Please obtain baseline labs from her primary care provider prior to discharge. Repeat serum chemistry tomorrow to monitor creatinine level.
--- NOTE | 2016-11-03 15:16 | PN- Cardiology ---
Subjective Subjective: The patient reports that she had some chest discomfort last night. She is now feeling better. No palpitations. No diaphoresis. No lightheadedness. Objective Vital Signs and I&Os Vital Signs Date Time Temp Pulse Resp B/P Pulse O2 O2 Flow FiO2 Ox Delivery Rate 11/03 1105 66 115/72 11/03 0828 99.7 66 16 115/72 94 Room Air 11/03 0029 97.1 68 20 140/80 94 Room Air 11/02 1530 97.8 65 20 104/70 97 Intake & Output 11/03 1600 11/03 0800 11/03 0000 11/02 1600 11/02 0800 11/02 0000 Intake Total 4016 470 3798 Output Total 400 600 Balance 1200 320 980 Intake, IV 800 600 900 Intake, Oral 400 120 680 Number 1 1 Bowel Movements Output, Urine 400 600 Patient 133 lb Weight Physical Exam: Gen: The patient is in no acute distress HEENT: Normal nose, ears, and oropharynx. Pupils equal bilaterally. Conjunctiva normal. Neck: Supple with no JVD, no masses, and no thyromegaly Lungs: Clear to auscultation with normal respiratory effort Heart: RRR, S1, S2, no murmurs. No peripheral edema, 2+ pulses in the lower extremities bilaterally Abdomen: Soft, nontender, no masses. No hepatomegaly. No splenomegaly Extremities: No clubbing or cyanosis. Normal muscle strength in the upper and lower extremities. Skin: Normal skin turgor with no skin ulcers or lesions noted. Neuro: Cranial nerves intact. Sensation intact Current Medications: Current Medications Sig/[place] Start time Last Medication Dose Route Stop Time Status Admin Acetaminophen 650 MG Q6P PRN 11/02 1245 AC PO Acetaminophen/ 1 TAB Q6P PRN 11/02 1245 AC Hydrocodone Bitart PO Alprazolam 0.25 MG Q12 11/02 1316 AC 11/03 PO 11/09 1315 0915 Aspirin 81 MG DAILY 11/03 1000 AC 11/03 PO 0915 Cholecalciferol 5,000 IU DAILY 11/03 1000 AC 11/03 PO 0915 Diphenhydramine HCl 25 MG Q6P PRN 11/02 1245 AC IV Docusate Sodium 100 MG BID 11/02 2200 AC 11/03 PO 0915 Heparin Sodium 5,000 UNIT Q8 11/02 220 AC 01/02 (Porcine) SC 1238 Hydromorphone HCl 0.5 MG Q4P PRN 11/02 1245 AC IV Levothyroxine Sodium 0.075 MG DAILY AC 11/03 0700 AC 11/03 PO 0631 Melatonin 3 MG AT BEDTIME 11/03 220 AC 11/02 PO 2309 Melatonin 3 MG .STK-MED ONE 11/02 2306 DC PO 11/02 2307 Metoprolol Tartrate 25 MG BID 11/03 1000 AC 11/03 PO 1105 Omeprazole 20 MG DAILY AC 11/03 07 AC 11/02 PO 2234 Omeprazole 20 MG .STK-MED ONE 11/02 2231 DC PO 11/02 223 Ondansetron HCl 4 MG Q6P PRN 11/02 1245 AC IV Polyethylene Glycol 17 GM AT BEDTIME 11/02 2199 AC PO Senna/Docusate Sodium 1 TAB AT BEDTIME 11/02 2199 AC PO Sodium Chloride 1,000 ML .[id number] 11/02 1515 AC 11/03 IV 11/03 1754 0432 Results Last 48 Hrs of Labs/Mics: Laboratory Tests 11/03/16 0700: Anion Gap 10, Estimated GFR 39 L, BUN/Creatinine Ratio 26.2 H, Magnesium 1.8, Troponin I 0.13 *H, CBC w Diff NO MAN DIFF REQ, RBC 3.88 L, MCV 92.8, MCH 31.8 H, RDW 13.6, MPV 8.5, Gran % 58.3, Lymphocytes % 26.6, Monocytes % 11.3 H, Eosinophils % 3.1, Basophils % 0.7, Absolute Granulocytes 3.0, Absolute Lymphocytes 1.4, Absolute Monocytes 0.6, Absolute Eosinophils 0.2, Absolute Basophils 0, PUBS MCHC 34.2 11/02/16 2145: Troponin I 0.17 *H 11/02/16 1600: Troponin I 0.17 *H 11/02/16 1543: Urine Color YEL, Urine Clarity CLEAR, Urine pH 6.5, Ur Specific [place] 1.010, Urine Protein NEG, Urine Ketones NEG, Urine Nitrite NEG, Urine Bilirubin NEG, Urine Urobilinogen 0.2, Ur Leukocyte Esterase SMALL H, Ur Microscopic SEDIMENT EXAMINED, Urine RBC RARE, Urine WBC 3-5 H, Ur Epithelial Cells FEW, Urine Mucus RARE, Urine Hemoglobin NEG, Urine Glucose NEG 11/02/16 1039: Hemoglobin A1c Pending 11/02/16 1039: Anion Gap 12, Estimated GFR 43 L, BUN/Creatinine Ratio 30.0 H, Glucose 86, Calcium 9.6, Total Bilirubin 0.5, AST 49 H, ALT 49, Alkaline Phosphatase 81, Troponin I 0.16 *H, Total Protein 7.3, Albumin 4.0, Globulin 3.3, Albumin/ Globulin Ratio 1.2, Triglycerides 365 H, Cholesterol 241 H, LDL Cholesterol, Calc 133 H, HDL Cholesterol 35 L, Cholesterol/HDL Ratio 7 H, TSH 2.550, Thyroxine (T4) 6.3, PT 10.8, INR 1.03, APTT 30, D-Dimer 2608 H, CBC w Diff NO MAN DIFF REQ, RBC 4.03 L, MCV 93.4, MCH 31.8 H, RDW 13.6, MPV 8.3, Gran % 59.6 , Lymphocytes % 24.7, Monocytes % 13.1 H, Eosinophils % 1.9, Basophils % 0.7, Absolute Granulocytes 3.6, Absolute Lymphocytes 1.5, Absolute Monocytes 0.8 H, Absolute Eosinophils 0.1, Absolute Basophils 0, PUBS MCHC 34.1 Assessment/Plan Assessment/Plan Assessment: 1. Hypertension 2. Hypothyroidism 3. Chest discomfort mostly pleuritic x1 week 4. Syncope, rule out cardiogenic etiology 5. Borderline troponin elevation. Recommendations: 1. Echocardiogram pending 2. If the patient remains medically stable and the echo does not show significant abnormalities, she may be discharged home. 3. Pharmacologic nuclear stress test as an outpatient. Continue telemetry? Yes
--- NOTE | 2016-11-03 15:35 | ULTRASOUND REPORT ---
EXAMINATION: US TRIPLEX LOWER EXTREMITY, BILATERAL CLINICAL INFORMATION: Chest pain and syncope. Evaluate for deep venous thrombosis. COMPARISON: None. TECHNIQUE: Color-flow triplex imaging with spectral analysis and compression Doppler were performed on the bilateral lower extremities. FINDINGS: Respiratory variation, normal compression and augmented flow are noted throughout the bilateral lower extremities. The visualized common femoral veins, femoral veins, profunda femoral veins, popliteal veins and mid calf peroneal and posterior tibial venous segments demonstrate no evidence of deep venous thrombosis. There are no Bardales's cysts. IMPRESSION: Normal triplex scan without evidence of deep venous thrombosis involving the bilateral lower extremities.
--- NOTE | 2016-11-03 15:38 | ULTRASOUND REPORT ---
EXAMINATION: US DUPLEX CAROTID AND VERTEBRAL CLINICAL INFORMATION: Syncope and chest pain. COMPARISON: None. TECHNIQUE: Real-time ultrasound and Doppler techniques (integrating B-mode 2D vascular images, Doppler spectral analysis and color flow Doppler imaging) were utilized to interrogate the extracranial carotid and vertebral arteries bilaterally. The degree of stenosis determined by criteria similar to NASCET. FINDINGS: RIGHT VESSELS - There is antegrade flow within the carotid and vertebral arteries. There is intimal thickening of the wall of the common carotid artery. [id number] amount of atherosclerotic plaque is seen at the level of the carotid bulb and bifurcation. Doppler derived peak systolic velocity measurements (cm/sec) were as follows: Distal CCA: 74 ICA: 101 (with end diastolic of 25) ECA: 85 Vertebral: 70 ICA/CCA ratio is 1.36 LEFT VESSELS - There is antegrade flow within the carotid and vertebral arteries. There is intimal thickening along the wall of the common carotid artery and moderate atherosclerotic plaque is seen along the wall of the carotid bulb/bifurcation. Doppler derived peak systolic velocity measurements (cm/sec) were as follows: Distal CCA: 81 ICA: 170 (with end diastolic of 24) ECA: 99 Vertebral: 18 (bidirectional, low amplitude flow, raising suspicion for partial subclavian steal) ICA/CCA ratio is 2.1 OTHER: Within the visualized right thyroid lobe, there is a well-circumscribed solid, isoechoic, noncalcified 1.3 x 0.9 x 1 cm nodule that has a thin hypoechoic rim. IMPRESSION: 1. Carotid atherosclerosis with < 50% stenosis of the proximal right ICA and estimated 50-69% stenosis of the proximal left ICA. 2. The right vertebral artery exhibits bidirectional, low amplitude flow, raising suspicion for partial subclavian steal. 3. Incidentally noted is a solid, isoechoic, noncalcified 1.3 x 0.9 x 1 cm nodule within the right thyroid lobe.
[2016-11-03 15:49] VITALS: BP 122/74
[2016-11-03 22:12] VITALS: BP 92/60
[2016-11-04 04:00] VITALS: BP 124/60
--- NOTE | 2016-11-04 07:26 | PN- Housestaff ---
MICHA BOSWELL 11/04/16 0726: Subjective Follow-up For: Acute chest pain Non-ST elevation myocardial infarction Elevated d-dimers Hypertension Hypothyroidism Anxiety disorder gerd Complaints: pain scale (0-10) Tele-Events Since Last Visit: Sinus rhythm First-degree heart block Rate 67-70 PACs No acute events noticed on sand car worker Subjective: Patient was seen and examined this morning. She is alert, awake and oriented to time place and person. No acute events monitored overnight. She denies any chest pain this morning. She denied any palpitations, headache, dizziness or lightheadedness. Denied any syncopal episodes. Denied any fever, shortness of breath, cough, abdominal pain, change in bladder or bowel habits. Vitals were stable. She is afebrile. Heart rate 68, respiratory rate 20, blood pressure 124/60, saturating at 93% on room air Review of Systems Constitutional: Denies: see HPI. Objective Last 24 Hrs of Vital Signs/I&O Vital Signs Date Time Temp Pulse Resp B/P Pulse O2 O2 Flow FiO2 Ox Delivery Rate 11/04 0912 67 110/74 11/04 0829 97.8 67 20 110/74 94 Room Air 11/04 0400 68 124/60 11/03 2212 98.0 65 20 92/60 93 Room Air 11/03 2121 63 92/60 / 1549 98.2 63 18 122/74 95 Room Air Intake & Output 11/04 1600 03 0800 11/04 0000 Intake Total 1200 120 480 Output Total Balance 1200 120 480 Intake, Oral 1200 120 480 Physical Exam General Appearance: Alert, Oriented X3, Cooperative, No Acute Distress Skin: No Rashes, No Breakdown HEENT: Atraumatic, Mucous Membr. moist/pink Neck: Supple, No JVD Lymphatic: Cervical nl Cardiovascular: Regular Rate, Normal S1, Normal S2, No Murmurs Lungs: Clear to Auscultation Abdomen: Normal Bowel Sounds, Soft, No Tenderness Neurological: Strength at 5/5 X4 Ext, Sensation Intact, Cranial Nerves 3-12 NL Extremities: No Clubbing, No Cyanosis, No Edema Vascular: Normal Pulses, Pulses Symmetrical Current Medications: Current Medications Sig/[place] Start time Last Medication Dose Route Stop Time Status Admin Acetaminophen 650 MG Q6P PRN 11/02 1245 AC PO Acetaminophen/ 1 TAB Q6P PRN 11/02 1245 AC Hydrocodone Bitart PO Alprazolam 0.25 MG Q12 11/02 1316 AC 11/04 PO 11/09 1315 0913 Aspirin 81 MG DAILY 11/03 1000 AC 11/04 PO 0911 Cholecalciferol 5,000 IU DAILY 11/03 1000 AC 11/04 PO 0912 Diphenhydramine HCl 25 MG Q6P PRN 11/02 1245 AC IV Docusate Sodium 100 MG BID 11/02 2200 AC 11/03 PO 0915 Heparin Sodium 5,000 UNIT Q8 11/02 2200 AC 11/04 (Porcine) SC 1408 Hydromorphone HCl 0.5 MG Q4P PRN 11/02 1245 AC IV Levothyroxine Sodium 0.075 MG DAILY AC 11/03 0700 AC 11/04 PO 0548 Magnesium Oxide 400 MG ONE ONE 11/03 1630 DC 11/03 PO 11/03 1631 1713 Melatonin 3 MG AT BEDTIME 11/03 2200 AC 11/03 PO 2121 Metoprolol Tartrate 25 MG BID 11/03 1000 DC 11/04 PO 0912 Omeprazole 20 MG AT BEDTIME 11/03 2200 AC 11/03 PO 2120 Omeprazole 20 MG DAILY AC 11/03 0700 DC 11/02 PO 2234 Ondansetron HCl 4 MG Q6P PRN 11/02 1245 AC IV Patient Medication 1 ED .STK-MED ONE 11/04 1415 [place] Teaching [facility] 11/04 1416 Polyethylene Glycol 17 GM AT BEDTIME 11/02 2200 AC PO Senna/Docusate Sodium 1 TAB AT BEDTIME 11/02 2200 AC PO Sodium Chloride 1,000 ML .[id number] 11/02 1515 DC 11/03 IV 11/03 1754 0432 Last 24 Hrs of Lab/Carl Results Last 24 Hrs of Labs/Mics: Laboratory Tests 11/04/16 0625: Anion Gap 12, Estimated GFR 47 L, BUN/Creatinine Ratio 30.9 H, Magnesium 2.0 Assessment/Plan Assessment: This is a 86 -year-old lady with a medical history of hypertension hypothyroidism and anxiety who presented with pleuritic and positional chest pain for one week and one episode of syncope Vitals on admission-afebrile, heart rate 65, respiratory rate 16, blood pressure 166/79, saturating at 95% on room air. Pertinent labs-CBC normal. Sodium 140, potassium 5.1, BUN 36 and creatinine 1.2 She was noted to have elevated troponins 0.16 on admission. Elevated d-dimers 2608 on admission however CAT scan chest ruled out pulmonary embolism and lower extremity Doppler ultrasound ruled out DVT. EKG on admission-sinus rhythm, no acute ST-T wave changes. Chest x-ray showed cardiomegaly. carotid doppler u/s neck IMPRESSION: 1. Carotid atherosclerosis with < 50% stenosis of the proximal right ICA and estimated 50-69% stenosis of the proximal left ICA. 2. The left vertebral artery exhibits bidirectional, low amplitude flow, raising suspicion for partial subclavian steal. 3. Incidentally noted is a solid, isoechoic, noncalcified 1.3 x 0.9 x 1 cm nodule within the right thyroid lobe. Problem list/plan 1. Pleuritic chest pain going on for 1 week 2. Elevated troponins-NSTEMI 3. Syncopal episode 4. Hypertension 5. Hypothyroidism 6. GERD 7. Anxiety 8. Partial left subclavian steal 9. Abnormal creatinine Chest pain-elevated troponins Patient presented to hospital with ongoing pleuritic chest pain for 1 week. Worsened on lying position and decreased with leaning forward. Troponins were elevated on admission. However no EKG changes were noted. Lower extremity Doppler and CAT scan chest ruled out DVT and pulmonary embolism. Possible differentials-NSTEMI/pleuritis pain/pulmonary embolism/pericarditis. * Admitted to telemetry floor for further monitoring. * Monitor vitals every shift * Maintain oxygen saturation ABOVE 92% * Provide supplemental oxygen if necessary * Serial troponins 0.17, 0.17 and 0.13 * Serial EKGs were negative * Echocardiogram pending- rule out pericarditis and evaluate for wall motion abnormalities in the setting of subacute chest pain and elevated troponins as well as valvular abnormalities in the setting of syncope. * Cardiology consult appreciated * Needs outpatient stress test. * Will follow-up recommendations * Continue aspirin * metoprolol was discontinued because of sinus bradycardia and sinus pauses on sand car worker Syncope Patient presented with pleuritic chest pain. Of note she reported one episode of syncope before coming to the hospital no prodromal symptoms. She felt dizzy all of a sudden and passed out. * On continuous sand car worker * Sinus bradycardia first-degree heart block and sinus pauses with [place] * Metoprolol was discontinued * Blood pressure under control * Orthostats were negative * No hypoglycemia * No seizures #Elevated creatinine: * Creatinine level of 1.2 on admission, increased to 1.3 next day despite IV hydration * 1.1 this morning * PCP office was called regarding baseline creatinine-kidney function tests in June 2016 showed creatinine 1.08 * Avoid nephrotoxin medications Subclavian steal Patient presented with chest pain and one episode of syncope. She is quite active and exercises at gym 3 times a day. She performs both treadmill exercises and arm exercises at gym. She denies any episode of dizziness during exercises. Carotid Doppler ultrasound neck showed moderate to stenosis of left ICA and left vertebral artery bidirectional flow due to possible subclavian steal. * Vascular surgeon was consult. * Patient has asymptomatic left carotid stenosis * Recommended CTA chest to better look at the aortic arch and subclavian arteries. * Follow-up as an outpatient * No recommendations for now Hypertension Patient takes metoprolol 25 mg twice a day Her metoprolol was discontinued in the hospital by the diamond grader because of sinus bradycardia and sinus pauses on telemetry monitoring However her blood pressure was under control No need to start new antihypertensive agents according to diamond grader Hypothyroidism Continue home dose of Synthyroid Thyroid function tests were normal on admission CAT scan chest showed 1.3 cm nodule-right thyroid. Patient was advised to follow-up with her primary care doctor. Anxiety Continue home dose of Xanax GERD Continue omeprazole 20 mg daily Patient is full code DVT prophylaxis subcutaneous heparin Mild to moderate pain pathway Tylenol Heart healthy diet Problem List: 1. NSTEMI (non-ST elevated myocardial infarction) 2. CHITRA (acute kidney injury) 3. Elevated troponin Pain Ratin Pain Location: none Pain Goal: Remain pain free Pain Plan: tylinol Tomorrow's Labs & Rationales: bep in the setting of renal insufficiency SIRISHA PERSON,IGNACIA 11/04/16 1027: Attending MD Review Statement Attending Statement Attending MD Statement: examined this patient, discuss w/resident/PA/COPY READER, agreed w/resident/PA/COPY READER, reviewed EMR data (avail), discussed with nursing Attending Assessment/Plan: Pt is ambulating with her daughter and feels well. She is an 86-year-old with hypertension and hypothyroidism who came in with syncope. She had a CTA that was negative but borderline troponins and cardiology has cleared from their standpoint. I am worried about the carotid ultrasound showing a partial questionable subclavian steal syndrome which could explain the syncope so we will have vascular see her and follow-up.
[2016-11-04 08:29] VITALS: BP 110/74
[2016-11-04] MEDS ORDERED: ASPIRIN81 M4 PO (08:38)
[2016-11-04] MEDS ORDERED: OMEPRAZOLE20 M2 PO (08:39)
--- NOTE | 2016-11-04 08:43 | Patient Discharge Instructions ---
Discharge Instructions General Discharge Information You were seen/treated for: CHEST PAIN NSTEMI SYNCOPE You had these procedures: NONE Watch for these problems: CHEST PAIN DIZZINESS PALPITATIONS Special Instructions: 1.FOLLOW UP YOUR PRIMARY CARE DOCTOR IN ONE WEEK 2. FOLLOW UP YOUR CRISIS INTERVENTION COUNSELOR IN ONE WEEK 3. NEEDS OUTPATIENT STRESS TEST 4. The left vertebral artery exhibits bidirectional, low amplitude flow, raising suspicion for partial subclavian steal- please follow up with vascular surgeon in one week. 5. -Incidentally noted - a solid, isoechoic, noncalcified 1.3 x 0.9 x 1 cm nodule within the right thyroid lobe- please follow-up with your primary care doctor. 6. Discontinued metoprolol given sinus bradycardia and sinus pauses noted on telemetry, which may contribute to syncope. The blood pressure is well controlled, and she will likely not need an alternative antihypertensive medication. Diet Continue normal diet: Yes Activity Full Activity/No Limits: Yes Acute Coronary Syndrome Inclusion Criteria At DC or during hospital stay patient has or had the following: ACS DIAGNOSIS Yes Discharge Core Measures Meds if any: Prescribed or Continued at Discharge Meds if any: NOT Prescribed or Continued at Discharge Congestive Heart Failure Inclusion Criteria At DC or during hospital stay patient has or had the following: CHF DIAGNOSIS No Discharge Core Measures Meds if any: Prescribed or Continued at Discharge Meds if any: NOT Prescribed or Continued at Discharge Cerebrovascular accident Inclusion Criteria At DC or during hospital stay patient has or had the following: CVA/TIA Diagnosis No Discharge Core Measures Meds if any: Prescribed or Continued at Discharge Meds if any: NOT Prescribed or Continued at Discharge Venous thromboembolism Inclusion Criteria VTE Diagnosis No VTE Type NONE VTE Confirmed by (Test) NONE Discharge Core Measures - Per Current guidelines, there needs to be overlap - treatment for the first 5 days of Warfarin therapy. - If discharged on Warfarin prior to 5 days of - overlap therapy, the patient will need to be - assessed for post discharge needs including - *Post discharge parental anticoagulation - *Warfarin and/or parental anticoagulation education - *Follow up date to check INR post discharge At least 5 days overlap therapy as Inpatient No Meds if any: Prescribed or Continued at Discharge Note: Overlap Therapy is Warfarin and Anticoagulant Meds if any: NOT Prescribed or Continued at Discharge
--- NOTE | 2016-11-04 12:43 | PN- Cardiology ---
Subjective Subjective: The patient reports that she is feeling better. No further chest pain. No further syncopal or presyncopal symptoms. She is noted on telemetry to have episodes of sinus bradycardia in the 40s, and sinus pauses of greater than 2 seconds. Blood pressure has been well-controlled, with an episode of hypotension overnight. Potential for partial subclavian steal. No shortness of breath. No diaphoresis. No nausea or vomiting. No lightheadedness or dizziness. Objective Vital Signs and I&Os Vital Signs Date Time Temp Pulse Resp B/P Pulse O2 O2 Flow FiO2 Ox Delivery Rate 11/04 0912 67 110/74 11/04 0829 97.8 67 20 110/74 94 Room Air 11/04 0400 68 124/60 11/03 2212 98.0 65 20 92/60 93 Room Air 11/03 2121 63 92/60 11/03 1549 98.2 63 18 122/74 95 Room Air Intake & Output 11/04 1600 11/04 0800 11/04 0000 11/03 1600 11/03 0800 11/03 0000 Intake Total 240 848 9092 720 1580 Output Total 400 600 Balance 567 201 1603 320 980 Intake, IV 800 600 900 Intake, Oral 120 480 400 120 680 Number 1 1 Bowel Movements Output, Urine 400 600 Physical Exam: Gen: The patient is in no acute distress HEENT: Normal nose, ears, and oropharynx. Pupils equal bilaterally. Conjunctiva normal. Neck: Supple with no JVD, no masses, and no thyromegaly Lungs: Clear to auscultation with normal respiratory effort Heart: RRR, S1, S2, no murmurs. No peripheral edema, 2+ pulses in the lower extremities bilaterally Abdomen: Soft, nontender, no masses. No hepatomegaly. No splenomegaly Extremities: No clubbing or cyanosis. Normal muscle strength in the upper and lower extremities Skin: Normal skin turgor with no skin ulcers or lesions noted. Neuro: Cranial nerves intact. Sensation intact Psych: Alert and oriented 3 with appropriate affect Current Medications: Current Medications Sig/[place] Start time Last Medication Dose Route Stop Time Status Admin Acetaminophen 650 MG Q6P PRN 11/02 1245 AC PO Acetaminophen/ 1 TAB Q6P PRN 11/02 1245 AC Hydrocodone Bitart PO Alprazolam 0.25 MG Q12 11/02 1316 AC 11/04 PO 11/09 1315 0913 Aspirin 81 MG DAILY 11/03 1000 AC 11/04 PO 0911 Cholecalciferol 5,000 IU DAILY 11/03 1000 AC 11/04 PO 0912 Diphenhydramine HCl 25 MG Q6P PRN 11/02 1245 AC IV Docusate Sodium 100 MG BID 11/02 2200 AC 11/03 PO 0915 Heparin Sodium 5,000 UNIT Q8 11/02 2200 AC 11/04 (Porcine) SC 0548 Hydromorphone HCl 0.5 MG Q4P PRN 11/02 1245 AC IV Levothyroxine Sodium 0.075 MG DAILY AC 11/03 0700 AC 11/04 PO 0548 Magnesium Oxide 400 MG ONE ONE 11/03 1630 DC 11/03 PO 11/03 1631 1713 Melatonin 3 MG AT BEDTIME 11/03 2200 AC 11/03 PO 2121 Metoprolol Tartrate 25 MG BID 11/03 1000 AC 11/04 PO 0912 Omeprazole 20 MG AT BEDTIME 11/03 2200 AC 11/03 PO 2120 Omeprazole 20 MG DAILY AC 11/03 0700 DC 11/02 PO 2234 Ondansetron HCl 4 MG Q6P PRN 11/02 1245 AC IV Polyethylene Glycol 17 GM AT BEDTIME 11/02 220 AC PO Senna/Docusate Sodium 1 TAB AT BEDTIME 11/02 220 AC PO Sodium Chloride 1,000 ML .[id number] 11/02 1515 DC 11/03 IV 11/03 1754 0432 Results Last 48 Hrs of Labs/Mics: Laboratory Tests 11/04/16 0625: Anion Gap 12, Estimated GFR 47 L, BUN/Creatinine Ratio 30.9 H, Magnesium 2.0 11/03/16 0700: Anion Gap 10, Estimated GFR 39 L, BUN/Creatinine Ratio 26.2 H, Magnesium 1.8, Troponin I 0.13 *H, CBC w Diff NO MAN DIFF REQ, RBC 3.88 L, MCV 92.8, MCH 31.8 H, RDW 13.6, MPV 8.5, Gran % 58.3, Lymphocytes % 26.6, Monocytes % 11.3 H, Eosinophils % 3.1, Basophils % 0.7, Absolute Granulocytes 3.0, Absolute Lymphocytes 1.4, Absolute Monocytes 0.6, Absolute Eosinophils 0.2, Absolute Basophils 0, PUBS MCHC 34.2 11/02/16 2145: Troponin I 0.17 *H 11/02/16 1600: Troponin I 0.17 *H 11/02/16 1543: Urine Color YEL, Urine Clarity CLEAR, Urine pH 6.5, Ur Specific [place] 1.010, Urine Protein NEG, Urine Ketones NEG, Urine Nitrite NEG, Urine Bilirubin NEG, Urine Urobilinogen 0.2, Ur Leukocyte Esterase SMALL H, Ur Microscopic SEDIMENT EXAMINED, Urine RBC RARE, Urine WBC 3-5 H, Ur Epithelial Cells FEW, Urine Mucus RARE, Urine Hemoglobin NEG, Urine Glucose NEG Recent Imaging Studies: Bilateral lower extremity Doppler study: Normal triplex scan without evidence of deep venous thrombosis involving the bilateral lower extremities. Carotid Doppler study: Normal triplex scan without evidence of deep venous thrombosis involving the bilateral lower extremities. awake overnight monitor tracings independently reviewed, and reveal sinus rhythm with episodes of sinus bradycardia in the 40s. There are sinus pauses of greater than 2 seconds. Assessment/Plan Assessment/Plan Assessment: 1. Hypertension 2. Hypothyroidism 3. Chest discomfort mostly pleuritic x1 week 4. Syncope, rule out cardiogenic etiology 5. Borderline troponin elevation, likely demand ischemia 6. Sinus bradycardia and sinus pauses, likely secondary to metoprolol. May have contributed to the syncopal episode. 7. Mild right carotid stenosis, moderate left carotid stenosis, possible partial subclavian steal Recommendations: 1. Echocardiogram pending 2. Discontinue metoprolol given sinus bradycardia and sinus pauses noted on telemetry, which may contribute to syncope. The blood pressure is well controlled, and she will likely not need an alternative antihypertensive medication. 3. Agree with vascular consult 4. Pharmacologic nuclear stress test as an outpatient. 5. Follow up in one to 2 weeks after discharge. Continue telemetry? Yes
--- NOTE | 2016-11-04 13:29 | Cons- Vascular Surgery ---
General Information and HPI Consulting Request Date of Consult: 11/04/16 Requested By: SIRISHA PERSON,IGNACIA Watson History of Present Illness: Patient is a pleasant 86-year-old lady with history of hypertension, hypothyroidism and anxiety disorder. She is quite active and exercises at the gym 3 times a week. She presented 2 days ago with a one-week history of chest discomfort and 1 episode of syncope. She has been seen and evaluated by the medical team and cardiology. At the gym, the patient performs both treadmill exercises as well as arm exercises. She denies any episode of dizziness during arm exercises. Workup has included a carotid ultrasound which showed moderate stenosis of the left ICA and less than 50% stenosis of the right ICA. The radiology reports has also mentioned right vertebral artery bidirectional flow due to possible subclavian steal. I was asked to see the patient regarding this finding. Allergies/Medications Allergies: Coded Allergies: No Known Allergies (11/02/16) Home Med List: Alprazolam 0.25 MG TABLET 1 TAB PO BIDP PRN ANXIETY (Reported) Aspirin (Aspirin*) 81 MG TAB.CHEW 1 TAB PO DAILY [employer] Ca/D3/Mag#11/Zinc/Outside Dealer Sales Representative/Skinny/Bor (Caltrate 600+D Plus Tablet) 600 MG-800 TABLET 1 TAB PO DAILY SUPPLEMENT (Reported) Cholecalciferol (Vitamin D3) (Vitamin D) 5,000 UNIT TABLET 1 TAB PO DAILY VITAMIN D (Reported) Levothyroxine Sodium 75 MCG TABLET 1 TAB PO DAILY HYPOTHYROIDISM (Reported) Metoprolol Tartrate 25 MG TABLET 1 TAB PO BID HYPERTENSION (Reported) Omeprazole 20 MG CAPSULE. 1 TAB PO AT BEDTIME HEART BURN Past History Medical History Blood Transfusion Hx: No Cardiovascular: hypertension Psychiatric: anxiety Endocrine: hypothyroidism Family History Relations & Conditions If Any: DAUGHTER Acute myocardial infarction Blood clots Psychosocial History Where Do You Live? Home Who Do You Live With? spouse Services at Home: None Primary Language: Armenian Smoking Status: Never Smoked ETOH Use: denies use Illicit Drug Use: denies illicit drug use Review of Systems Review of Systems: Patient denies headache, dizziness, cough, palpitation, diarrhea or constipation Exam & Diagnostic Data Vital Signs and I&O Vital Signs Date Time Temp Pulse Resp B/P Pulse O2 O2 Flow FiO2 Ox Delivery Rate 11/04 0912 67 110/74 11/04 0829 97.8 67 20 110/74 94 Room Air 11/04 0400 68 124/60 11/03 2212 98.0 65 20 92/60 93 Room Air 11/03 2121 63 92/60 11/03 1549 98.2 63 18 122/74 95 Room Air Intake & Output 11/04 1600 11/04 0800 11/04 0000 11/03 1600 11/03 0800 11/03 0000 Intake Total 798 299 2568 720 1580 Output Total 400 600 Balance 120 834 6328 320 980 Intake, IV 800 600 900 Intake, Oral 120 480 400 120 680 Number 1 1 Bowel Movements Output, Urine 400 600 Physical Exam: Patient is alert and oriented 3 Cardiovascular: Regular rate and rhythm Lungs: Clear to auscultation bilaterally Abdomen: Soft, nontender nondistended Upper extremities: Strong right radial and brachial pulse. I am unable to palpate left radial pulse. The left brachial pulses weak in comparison to the right. Assessment/Plan Assessment/Plan 86-year-old active woman with several day history of chest discomfort and 1 episode of syncope with so far negative heart attack workup has been found to have bidirectional flow in the vertebral artery. The ultrasound report is incorrect in laterality. Indeed, the waveform on the left vertebral artery shows spectral broadening with low amplitude and bidirectional flow. This does correspond to physical examination finding of weak left brachial pulse and no palpable left radial pulse. My assessment is that this patient has an asymptomatic left carotid stenosis. If her 1 syncopal episode was related to subclavian steal in this active woman, then she would've had more episodes while performing arm exercises at the gym. At the time of her syncopal episodes, she was not performing repetitive arm motions. He is right handed and uses her right arm mostly. I would like to recommend getting a CTA of the chest order to better look at the aortic arch and subclavian arteries. I will follow her as an outpatient. Thank you for asking me to be involved in the care of this patient. Consult Acknowledgment - Thank you for your consult request.
[2016-11-04 16:26] VITALS: BP 114/70
--- NOTE | 2016-11-04 17:18 | CT SCAN REPORT ---
EXAMINATION: CT UPPER EXTREMITY, LEFT CLINICAL INFORMATION: Carotid ultrasound demonstrates bidirectional flow in left vertebral artery raising suspicion of subclavian steal. Syncope in chest COMPARISON: Carotid ultrasound 11/03/2015. TECHNIQUE: Scans of the chest and left upper extremity were performed both before and after IV contrast. For the contrast-enhanced portion of the exam, 98 mL of Optiray 320 was utilized. Images were evaluated on an independent dedicated 3-D workstation and 3-D images were reconstructed with concurrent radiologist supervision and subsequently interpreted. A CTA of the left upper extremity was ordered. Evaluation of the aortic arch and great vessels is not optimal because of this. DLP: 265.72 mGy-cm. FINDINGS: A three-vessel aortic arch is noted. Atherosclerotic changes are noted in the arch with some eccentric plaque. The proximal portions of the great vessels are normal with the exception of the left subclavian artery which demonstrates a tight stenosis approximately 1 cm prior to takeoff of the vertebral artery and internal mammary artery. Some dense calcifications are noted in the vessel at the level of the stenosis and just distal to it. The remainder of the subclavian artery appears unremarkable. The axillary artery is unremarkable. The brachial artery appears normal as does the runoff to the left hand via the radial artery, ulnar artery and interosseous artery. No masses are seen in the visualized portions of the lungs. No mediastinal masses are seen. No bony destructive lesions are present. 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
[2016-11-04 22:56] VITALS: BP 106/60
--- NOTE | 2016-11-05 07:29 | PN- Housestaff ---
MICHA BOSWELL 11/05/16 0728: Subjective Follow-up For: Acute chest pain/ua Elevated d-dimers subclavian steal Hypertension Hypothyroidism Anxiety disorder gerd Complaints: pain scale (0-10) Tele-Events Since Last Visit: Sinus rhythm First-degree heart block Rate 60-70 Subjective: Patient was seen and examined this morning. She is alert, awake and oriented to time place and person. No acute events monitored overnight. She denies any chest pain this morning. She denied any palpitations, headache, dizziness or lightheadedness. Denied any syncopal episodes. Denied any fever, shortness of breath, cough, abdominal pain, change in bladder or bowel habits. Vitals were stable. She is afebrile. Heart rate 67, respiratory rate 18, blood pressure 106/60, saturating at 93% on room air Review of Systems Constitutional: Denies: see HPI. Objective Last 24 Hrs of Vital Signs/I&O Vital Signs Date Time Temp Pulse Resp B/P Pulse O2 O2 Flow FiO2 Ox Delivery Rate 11/05 0810 97.4 71 16 132/70 94 Room Air 11/04 2256 98.2 67 18 106/60 93 Room Air 11/04 1626 97.6 69 20 114/70 93 Room Air Intake & Output 11/05 1600 11/05 0800 11/05 0000 Intake Total 480 480 Output Total Balance 480 480 Intake, Oral 480 480 Number 1 Bowel Movements Physical Exam General Appearance: Alert, Oriented X3, Cooperative, No Acute Distress Skin: No Rashes, No Breakdown HEENT: Atraumatic, Mucous Membr. moist/pink Neck: Supple, No JVD Lymphatic: Cervical nl Cardiovascular: Regular Rate, Normal S1, Normal S2, No Murmurs Lungs: Normal Air Movement Abdomen: Normal Bowel Sounds, Soft, No Tenderness Extremities: No Clubbing, No Cyanosis, No Edema Vascular: Normal Pulses Current Medications: Current Medications Sig/[place] Start time Last Medication Dose Route Stop Time Status Admin Acetaminophen 650 MG Q6P PRN 11/02 1245 DCD PO Acetaminophen/ 1 TAB Q6P PRN 11/02 1245 DCD Hydrocodone Bitart PO Alprazolam 0.25 MG Q12 11/02 1316 DCD 11/05 PO 11/09 1315 0826 Aspirin 81 MG DAILY 11/03 1000 DCD 11/05 PO 0825 Cholecalciferol 5,000 IU DAILY 11/03 1000 DCD 11/05 PO 0825 Diphenhydramine HCl 25 MG Q6P PRN 11/02 1245 DCD IV Docusate Sodium 100 MG BID 11/02 2199 DCD 11/03 PO 0915 Heparin Sodium 5,000 UNIT Q8 11/020 DCD 11/05 (Porcine) SC 0549 Hydromorphone HCl 0.5 MG Q4P PRN 11/02 1245 DCD IV Levothyroxine Sodium 0.075 MG DAILY AC 11/03 0700 DCD 11/05 PO 0550 Melatonin 3 MG AT BEDTIME 11/03 2199 DCD 11/04 PO 2058 Omeprazole 20 MG AT BEDTIME 11/03 2199 DCD 11/04 PO 205 Ondansetron HCl 4 MG Q6P PRN 11/02 1245 DCD IV Polyethylene Glycol 17 GM AT BEDTIME 11/02 2200 DCD PO Senna/Docusate Sodium 1 TAB AT BEDTIME 11/02 220 DCD PO Last 24 Hrs of Lab/Carl Results Last 24 Hrs of Labs/Mics: Laboratory Tests 11/05/16 0635: Anion Gap 14, Estimated GFR 47 L, BUN/Creatinine Ratio 38.2 H Assessment/Plan Assessment: This is a 86 -year-old lady with a medical history of hypertension hypothyroidism and anxiety who presented with pleuritic and positional chest pain for one week and one episode of syncope Vitals on admission-afebrile, heart rate 65, respiratory rate 16, blood pressure 166/79, saturating at 95% on room air. Pertinent labs-CBC normal. Sodium 140, potassium 5.1, BUN 36 and creatinine 1.2 She was noted to have elevated troponins 0.16 on admission. Elevated d-dimers 2608 on admission however CAT scan chest ruled out pulmonary embolism and lower extremity Doppler ultrasound ruled out DVT. EKG on admission-sinus rhythm, no acute ST-T wave changes. Chest x-ray showed cardiomegaly. carotid doppler u/s neck IMPRESSION: 1. Carotid atherosclerosis with < 50% stenosis of the proximal right ICA and estimated 50-69% stenosis of the proximal left ICA. 2. The left vertebral artery exhibits bidirectional, low amplitude flow, raising suspicion for partial subclavian steal. 3. Incidentally noted is a solid, isoechoic, noncalcified 1.3 x 0.9 x 1 cm nodule within the right thyroid lobe. Problem list/plan 1. Pleuritic chest pain going on for 1 week 2. Elevated troponins-NSTEMI 3. Syncopal episode 4. Hypertension 5. Hypothyroidism 6. GERD 7. Anxiety 8. Partial left subclavian steal 9. Abnormal creatinine Chest pain-elevated troponins Patient presented to hospital with ongoing pleuritic chest pain for 1 week. Worsened on lying position and decreased with leaning forward. Troponins were elevated on admission. However no EKG changes were noted. Lower extremity Doppler and CAT scan chest ruled out DVT and pulmonary embolism. Possible differentials-NSTEMI/pleuritis pain/pulmonary embolism/pericarditis. * Admitted to telemetry floor for further monitoring. * Monitor vitals every shift * Maintain oxygen saturation ABOVE 92% * Provide supplemental oxygen if necessary * Serial troponins 0.17, 0.17 and 0.13 * Serial EKGs were negative * Echocardiogram normal- read by dr mendoza * Cardiology consult appreciated * Needs outpatient stress test. * Continue aspirin * metoprolol was discontinued because of sinus bradycardia and sinus pauses on professional services consultant Syncope Patient presented with pleuritic chest pain. Of note she reported one episode of syncope before coming to the hospital no prodromal symptoms. She felt dizzy all of a sudden and passed out. * On continuous professional services consultant * Sinus bradycardia first-degree heart block and sinus pauses with [place] * Metoprolol was discontinued * Blood pressure under control * Orthostats were negative * No hypoglycemia * No seizures #Elevated creatinine: * Creatinine level of 1.2 on admission, increased to 1.3 next day despite IV hydration * 1.1 this morning * PCP office was called regarding baseline creatinine-kidney function tests in June 2016 showed creatinine 1.08 * Avoid nephrotoxin medications Subclavian steal Patient presented with chest pain and one episode of syncope. She is quite active and exercises at gym 3 times a day. She performs both treadmill exercises and arm exercises at gym. She denies any episode of dizziness during exercises. Carotid Doppler ultrasound neck showed moderate to stenosis of left ICA and left vertebral artery bidirectional flow due to possible subclavian steal. * Vascular surgeon was consulted. * Patient has asymptomatic left carotid stenosis * Recommended CTA chest to better look at the aortic arch and subclavian arteries- Tight left subclavian artery stenosis proximal to the vertebral artery. * Follow-up as an outpatient * No recommendations for now Hypertension Patient takes metoprolol 25 mg twice a day Her metoprolol was discontinued in the hospital by the speech therapy director because of sinus bradycardia and sinus pauses on telemetry monitoring However her blood pressure was under control No need to start new antihypertensive agents according to speech therapy director Hypothyroidism Continue home dose of Synthyroid Thyroid function tests were normal on admission CAT scan chest showed 1.3 cm nodule-right thyroid. Patient was advised to follow-up with her primary care doctor. Anxiety Continue home dose of Xanax GERD Continue omeprazole 20 mg daily Patient is full code DVT prophylaxis subcutaneous heparin Mild to moderate pain pathway Tylenol Heart healthy diet Problem List: 1. CHITRA (acute kidney injury) 2. Elevated troponin Pain Ratin Pain Location: none Pain Goal: Remain pain free Pain Plan: none Tomorrow's Labs & Rationales: none IGNACIA GRIMM MD 11/05/16 0937: Attending MD Review Statement Attending Statement Attending MD Statement: examined this patient, discuss w/resident/PA/WIRE MILL OPERATOR, agreed w/resident/PA/WIRE MILL OPERATOR, reviewed EMR data (avail), discussed with nursing, discussed with case mgmt Attending Assessment/Plan: Patient feels well. I went over with her at length the subclavian steal syndrome and the implications. She understands that she needs close vascular follow-up and will be discharged on a baby aspirin. She is an 86-year-old who came in with an episode of syncope and borderline troponin. 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 We're awaiting the echo results and if that's okay, she can leave with outpatient follow-up. Her metoprolol was discontinued because of significant bradycardia and her pressure has been normal off it.
[2016-11-05 08:10] VITALS: BP 132/70
--- NOTE | 2016-11-05 12:32 | PN- Cardiology ---
Subjective Subjective: The patient is stable and doing well. No further lightheaded spells. No further chest discomfort. Objective Vital Signs and I&Os Vital Signs Date Time Temp Pulse Resp B/P Pulse O2 O2 Flow FiO2 Ox Delivery Rate 11/05 0810 97.4 71 16 132/70 94 Room Air 11/04 2256 98.2 67 18 106/60 93 Room Air 11/04 1626 97.6 69 20 114/70 93 Room Air Intake & Output 11/05 1600 11/05 0800 11/05 0000 11/04 1600 11/04 0800 11/04 0000 Intake Total 498 763 3040 120 480 Output Total Balance 093 856 9533 120 480 Intake, Oral 365 111 3748 120 480 Number 1 Bowel Movements Current Medications: Current Medications Sig/[place] Start time Last Medication Dose Route Stop Time Status Admin Acetaminophen 650 MG Q6P PRN 11/02 1245 AC PO Acetaminophen/ 1 TAB Q6P PRN 11/02 1245 AC Hydrocodone Bitart PO Alprazolam 0.25 MG Q12 11/02 1316 AC 11/05 PO 11/09 1315 0826 Aspirin 81 MG DAILY 11/03 1000 AC 11/05 PO 0825 Cholecalciferol 5,000 IU DAILY 11/03 1000 AC 11/05 PO 0825 Diphenhydramine HCl 25 MG Q6P PRN 11/02 1245 AC IV Docusate Sodium 100 MG BID 11/02 2200 AC 11/03 PO 0915 Heparin Sodium 5,000 UNIT Q8 11/02 2200 AC 11/05 (Porcine) SC 0549 Hydromorphone HCl 0.5 MG Q4P PRN 11/02 1245 AC IV Levothyroxine Sodium 0.075 MG DAILY AC 11/03 0700 AC 11/05 PO 0550 Melatonin 3 MG AT BEDTIME 11/03 2199 AC 11/04 PO 2059 Metoprolol Tartrate 25 MG BID 11/03 1000 DC 11/04 PO 0912 Omeprazole 20 MG AT BEDTIME 11/03 2199 AC 11/04 PO 2059 Ondansetron HCl 4 MG Q6P PRN 11/02 1245 AC IV Patient Medication 1 ED .STK-MED ONE 11/04 1415 IN Teaching ED 11/04 1416 Polyethylene Glycol 17 GM AT BEDTIME 11/02 2199 AC PO Senna/Docusate Sodium 1 TAB AT BEDTIME 11/02 2200 AC PO Results Last 48 Hrs of Labs/Mics: Laboratory Tests 11/05/16 0635: Anion Gap 14, Estimated GFR 47 L, BUN/Creatinine Ratio 38.2 H 11/04/16 0625: Anion Gap 12, Estimated GFR 47 L, BUN/Creatinine Ratio 30.9 H, Magnesium 2.0 Assessment/Plan Assessment/Plan Assessment: 1. Hypertension 2. Hypothyroidism 3. Chest discomfort mostly pleuritic x1 week 4. 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 Borderline troponin elevation, likely demand ischemia 6. Sinus bradycardia and sinus pauses, likely secondary to metoprolol. May have contributed to the syncopal episode. 7. Mild right carotid stenosis, moderate left carotid stenosis, significant left subclavian artery stenosis Recommendations: -The patient appears to be stable for May cardiac standpoint. -The patient can be discharged from a cardiac perspective. -The patient should follow-up with Dr. Love as an outpatient. -The patient should follow-up with vascular surgery as an outpatient for possible intervention for left subclavian stenosis -The patient was instructed on activities to avoid, etc. with respect to her subclavian lesion. Continue telemetry? No
--- NOTE | 2016-11-05 16:01 | Discharge Summary ---
Visit Information Visit Dates Admission Date: 11/02/16 Discharge Date: 11/05/16 Hospital Course Course Attending Physician: SIRISHA PERSON,IGNACIA Watson Primary Care Physician: JANIE PERSON,JULIO CÉSAR Jewell Other Care Providers: Dr. Love, medical doctor nuclear medicine Dr. Young, vascular surgeon Consulting Request: Consulting Specialty: Cardiology Hospital Course: This is a 86 -year-old lady with a medical history of hypertension hypothyroidism and anxiety who presented with pleuritic and positional chest pain for one week and one episode of syncope Vitals on admission-afebrile, heart rate 65, respiratory rate 16, blood pressure 166/79, saturating at 95% on room air. Pertinent labs-CBC normal. Sodium 140, potassium 5.1, BUN 36 and creatinine 1.2 She was noted to have elevated troponins 0.16 on admission. Elevated d-dimers 2608 on admission, however CAT scan chest ruled out pulmonary embolism and lower extremity Doppler ultrasound ruled out DVT. EKG on admission-sinus rhythm, no acute ST-T wave changes. Chest x-ray showed cardiomegaly. carotid doppler u/s neck IMPRESSION: 1. Carotid atherosclerosis with < 50% stenosis of the proximal right ICA and estimated 50-69% stenosis of the proximal left ICA. 2. The left vertebral artery exhibits bidirectional, low amplitude flow, raising suspicion for partial subclavian steal. 3. Incidentally noted is a solid, isoechoic, noncalcified 1.3 x 0.9 x 1 cm nodule within the right thyroid lobe. CTA HEAD Tight left subclavian artery stenosis proximal to the vertebral artery. Chest pain-elevated troponins/demand ischemia Patient presented to hospital with ongoing pleuritic chest pain for 1 week. Worsened on lying position and decreased with leaning forward. Troponins were elevated on admission. However no EKG changes were noted. Lower extremity Doppler and CAT scan chest ruled out DVT and pulmonary embolism. Admitted to telemetry floor for further monitoring. Monitored vitals every shift. Serial troponins 0.17, 0.17 and 0.13. Serial EKGs were negative. Possibly from demand ischemia. Echocardiogram normal- read by dr mendoza.( official report not yet) Recommended outpatient stress test and cardiology follow-up in one week. She was continued on aspirin. metoprolol was discontinued because of sinus bradycardia and sinus pauses on quality assurance monitor chassis. Syncope Patient presented with pleuritic chest pain. Of note she reported one episode of syncope before coming to the hospital with no prodromal symptoms. Possibly from sub-clavian steal. Orthostats were negative. Sinus bradycardia, first- degree heart block and sinus pauses were noticed. Metoprolol was discontinued. Elevated creatinine: Creatinine level of 1.2 on admission, increased to 1.3 next day despite IV hydration. Came down to 1.1. PCP office was called regarding baseline creatinine-kidney function tests in June 2016 showed creatinine 1.08. Subclavian steal Patient presented with chest pain and one episode of syncope. She is quite active and exercises at gym 3 times a day. She performs both treadmill exercises and arm exercises at gym. She denies any episode of dizziness during exercises. Carotid Doppler ultrasound neck showed moderate to stenosis of left ICA and left vertebral artery bidirectional flow due to possible subclavian steal. CT angiogram head conformed subclavian steal. Vascular surgeon was consulted. Patient has asymptomatic left carotid stenosis. Follow-up as an outpatient. No recommendations for now. Hypertension Patient takes metoprolol 25 mg twice a day. Her metoprolol was discontinued in the hospital by the medical doctor nuclear medicine because of sinus bradycardia and sinus pauses on telemetry monitoring. However her blood pressure was under control. No need to start new antihypertensive agents according to medical doctor nuclear medicine. Hypothyroidism Continued home dose of Synthyroid. Thyroid function tests were normal on admission. CAT scan chest showed 1.3 cm nodule-right thyroid. Patient was advised to follow-up with her primary care doctor. Anxiety Continued home dose of Xanax GERD Continued omeprazole 20 mg daily Patient is full code DVT prophylaxis subcutaneous heparin Mild to moderate pain pathway Tylenol Heart healthy diet Complications: none Allergies: Coded Allergies: No Known Allergies (11/02/16) Significant Procedures: none Pertinent Lab Results: Chest x-ray-no acute findings, evidence of cardiomegaly/congestive heart failure Chest CTA-ruled out pulmonary embolism Carotid Dopplers neck- 1. Carotid atherosclerosis with < 50% stenosis of the proximal right ICA and estimated 50-69% stenosis of the proximal left ICA. 2. The right vertebral artery exhibits bidirectional, low amplitude flow, raising suspicion for partial subclavian steal. 3. Incidentally noted is a solid, isoechoic, noncalcified 1.3 x 0.9 x 1 cm nodule within the right thyroid lobe. CT angiogram head Tight left subclavian artery stenosis proximal to the vertebral artery. 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 FOLLOW UP YOUR PRIMARY CARE DOCTOR IN ONE WEEK. 2. FOLLOW UP YOUR CESSPOOL CLEANER, dr. love IN ONE WEEK. 3. NEEDS OUTPATIENT STRESS TEST. 4. The left vertebral artery exhibits bidirectional, low amplitude flow, raising suspicion for partial subclavian steal and cta head showed Tight left subclavian artery stenosis proximal to the vertebral artery - please follow up with vascular surgeon, dr mason in one week. 5. -Incidentally noted - a solid, isoechoic, noncalcified 1.3 x 0.9 x 1 cm nodule within the right thyroid lobe- please follow-up with your primary care doctor. 6. Discontinued metoprolol given sinus bradycardia and sinus pauses noted on telemetry, which may contribute to syncope. The blood pressure is well controlled, and she will likely not need an alternative antihypertensive medication. Medications at Discharge Discharge Medications: Stop taking the following medications: Metoprolol Tartrate (Metoprolol Tartrate) 25 MG TABLET ORAL TWICE DAILY Qty = 180 Continue taking these medications: Alprazolam (Alprazolam) 0.25 MG TABLET 1 Tablet ORAL 2 x Daily as needed as needed for ANXIETY Qty = 60 Levothyroxine Sodium (Levothyroxine Sodium) 75 MCG TABLET 1 Tablet ORAL DAILY Qty = 90 Ca/D3/Mag#11/Zinc/Rolled Glass Crosscutter/Skinny/Bor (Caltrate 600+D Plus Tablet) 600 MG-800 TABLET 1 Tablet ORAL DAILY Cholecalciferol (Vitamin D3) (Vitamin D) 5,000 UNIT TABLET 1 Tablet ORAL DAILY Start taking the following new medications: Aspirin (Aspirin*) 81 MG TAB.CHEW 1 Tablet ORAL DAILY Qty = 30 No Refills Omeprazole (Omeprazole) 20 MG CAPSULE. 1 Tablet ORAL AT BEDTIME Qty = 30 No Refills Copies To: JANIE PERSON,JULIO CÉSAR Jewell
--- NOTE | 2016-11-05 17:27 | ECHOCARDIOGRAM REPORT ---
TAMMIE REESE Age: 86 : 1930 Gender: F Exam Date: 11/04/2016 16:28 Exam Location: 1 [address] Ht (in): 63 Wt (lb): 133 BSA: 1.65 BP: 110 / 74 Ordering Physician: DIANE STANFORD MD Referring Physician: Golden Love MD Technologist: Laurie Tristan [facility] Room Number: [id number] Indications: CHEST PAIN Rhythm: Sinus Technical Quality: Fair FINDINGS Left Ventricle Normal size left ventricle. Normal left ventricular wall thickness. Normal size left ventricle. Normal left ventricular ejection fraction visually estimated at >70 %. No obvious regional wall motion abnormalities. Abnormal relaxation filling pattern of the left ventricle for age (stage 1 diastolic dysfunction). Right Ventricle Normal right ventricular size and function. Right Atrium Normal right atrial size. Left Atrium Normal left atrial size. Mitral Valve Mitral valve thickened. Trace mitral regurgitation. Aortic Valve Diffuse thickening (sclerosis) of the aortic valve cusps without reduced excursion. Mild aortic regurgitation. Tricuspid Valve Tricuspid valve not well visualized, grossly normal. Mild tricuspid regurgitation. No evidence of pulmonary hypertension. Pulmonic Valve Trace pulmonic regurgitation. Pericardium No pericardial effusion. Great Vessels Normal size aortic root. CONCLUSIONS Normal size left ventricle. Normal left ventricular wall thickness. Normal left ventricular ejection fraction visually estimated at >70 Abnormal relaxation filling pattern of the left ventricle for age (stage 1 diastolic dysfunction). Mild aortic regurgitation. Mild tricuspid regurgitation. Golden Love M.D. (Electronically Signed) Final Date: 05 November 2016 17:26 MEASUREMENTS (Male / Female) Normal Values 2D ECHO LV Diastolic Diameter PLAX 3.1 cm 4.2 - 5.9 / 3.9 - 5.3 cm LV Systolic Diameter PLAX 1.9 cm 2.1 - 4.0 cm LV Fractional Shortening PLAX 38.7 % 25 - 46 % LV Ejection Fraction 2D Teich 70.6 % IVS Diastolic Thickness 0.9 cm LVPW Diastolic Thickness 0.9 cm LV Relative Wall Thickness 0.6 RV Internal Dim ED PLAX 2.6 cm 1.9 - 3.8 cm LVOT Diameter 1.8 cm Aortic Root Diameter 3.0 cm LA Systolic Diameter LX 3.2 cm 3.0 - 4.0 / 2.7 - 3.8 cm LA Volume 30.0 cm 18 - 58 / 22 - 52 cm Ascending Aorta Diameter 3.3 cm DOPPLER AV Peak Velocity 189.0 cm/s AV Peak Gradient 14.3 mmHg AV Mean Velocity 129.0 cm/s AV Mean Gradient 8.0 mmHg AV Velocity Time Integral 35.4 cm LVOT Peak Velocity 119.0 cm/s LVOT Peak Gradient 5.7 mmHg LVOT Mean Velocity 84.5 cm/s LVOT Mean Gradient 3.0 mmHg LVOT Velocity Time Integral 23.8 cm LVOT Stroke Volume 60.6 cm AV Area Cont Eq vti 1.7 cm AV Area Cont Eq pk 1.6 cm MV Peak Velocity 183.0 cm/s MV Peak Gradient 13.4 mmHg MV Mean Velocity 73.4 cm/s MV Mean Gradient 3.0 mmHg Mitral E Point Velocity 70.6 cm/s Mitral A Point Velocity 133.0 cm/s Mitral E to A Ratio 0.5 MV PHT Velocity 93.7 cm/s MV Deceleration [place] 213.0 cm/s MV Pressure Half Time 132.0 ms MV Area PHT 1.7 cm MV Deceleration Time 363.0 ms TR Peak Velocity 235.0 cm/s TR Peak Gradient 22.1 mmHg Right Atrial Pressure 5.0 mmHg Pulmonary Artery Systolic Pressu 27.1 mmHg Right Ventricular Systolic Press 27.1 mmHg PV Peak Velocity 92.4 cm/s PV Peak Gradient 3.4 mmHg PV Mean Velocity 66.3 cm/s PV Mean Gradient 2.0 mmHg PV Velocity Time Integral 20.4 cm LV E' Lateral Velocity 6.5 cm/s Mitral E to LV E' Lateral Ratio 10.8 LV E' Septal Velocity 4.7 cm/s Mitral E to LV E' Septal Ratio 15.1
== END 2016-11-05 12:55 | DRG 311 ==
LOC: ERH 09:25 → ERHI 11:57 → 1NO 11:57
PROVIDERS: Emergency Medicine; Internal Medicine Hematology & Oncology; ADMIT Internal Medicine
DX: I24.8 Other forms of acute ischemic heart disease (principal); I65.23 Occlusion and stenosis of bilateral carotid arteries; R00.1 Bradycardia, unspecified; I10 Essential (primary) hypertension; E03.9 Hypothyroidism, unspecified; K21.9 Gastro-esophageal reflux disease without esophagitis
CPT/HCPCS: 1NSP; 36415; 81001; 82436; 93005; 93010; 93306; 93970; J1200; J1644; J3490

== ENCOUNTER 2017-03-16 16:46 | Emergency (ER) | payer OTHER ==
[~2017-03-16] VITALS: Ht 157.5 cm; Wt 63.5 kg
[~2017-03-16 16:46] MED LIST: ALPRAZOLAM0.25 M1 PO; ASPIRIN81 M4 PO; CALTRATE 600+D1 EACH PO; LEVOTHYROXINE75 MCG PO; METOPROLOL TART25 M1 PO; OMEPRAZOLE20 M2 PO; VITAMIN D5000 UNIT PO
--- NOTE | 2017-03-16 17:13 | CT SCAN REPORT ---
EXAMINATION: NONCONTRAST HEAD CT NONCONTRAST CERVICAL SPINE CT INDICATION INFORMATION: Altered mental status. Fall. COMPARISON: None TECHNIQUE: Separate noncontrast CT examinations of the head and cervical spine were performed. Coronal and sagittal images were created for each examination at the technologist workstation. FINDINGS: Head: There is no evidence of acute intracranial hemorrhage or territorial infarction. No abnormal mass effect or midline shift is seen. Goodrich to white matter differentiation is well preserved. No extra-axial fluid collections are identified. No hydrocephalus. Proportional prominence of the ventricles and sulcal spaces is consistent with moderate volume loss. Patchy periventricular and deep white matter hypoattenuation is consistent with moderate small vessel ischemic changes. Right basal ganglia chronic lacunar infarcts. The osseous structures and soft tissues are normal. Stabilization device overlies the nasal bridge. No displaced nasal bone fracture is visualized. Mild opacification of the right maxillary sinus. The mastoid air cells and visualized portions of the paranasal sinuses are otherwise well aerated. Cervical spine: There is anatomic alignment of the vertebral bodies and posterior elements. The atlantoaxial and atlantooccipital articulations are intact. Vertebral body heights are maintained. There is multilevel intervertebral disc space narrowing with endplate osteophyte formation and facet arthropathy. Multilevel calcified posterior disc. No evidence of acute fracture. No prevertebral soft tissue swelling. Visualized portions of the lung apices are unremarkable. The thyroid gland is unremarkable. IMPRESSION: 1. No acute intracranial findings. Volume loss with small vessel ischemic change. 2. No acute fracture or malalignment of the cervical spine. Mild degenerative changes throughout.
--- NOTE | 2017-03-16 17:53 | RADIOLOGY REPORT ---
EXAMINATION: XR PORTABLE CHEST CLINICAL INFORMATION: Altered mental status. Evaluate for aspiration. COMPARISON: Chest x-ray most recent prior dated 11/02/2016. TECHNIQUE: Portable frontal view of the chest was obtained. FINDINGS: Endotracheal tube terminates approximately 4.5 cm above the taye. Cardia mediastinal silhouette is within normal limits. Lungs are clear. Mild prominence of the pulmonary and bronchial markings compatible with chronic change. No acute airspace disease. Bony thorax is intact. IMPRESSION: Chronic changes. No acute pulmonary disease. Endotracheal tube terminates 4.5 cm above the taye.
[2017-03-16 17:56] LABS: ABSOLUTE BASOPHIL COUNT 0 /CUMM (0.0-0.2); ABSOLUTE EOSINOPHIL COUNT 0 /CUMM (0.0-0.7); ABSOLUTE GRANULOCYTE CT 6.2 /CUMM (1.4-6.5); ABSOLUTE MONOCYTE COUNT 0.4 /CUMM (0.10-0.60); BASOPHIL % 0.6 % (0.0-2.0); EOSINOPHIL % 0.2 % (0-5); GRANULOCYTE % 81.1 % (42.2-75.2); HEMATOCRIT 44.5 % (37-47); MEAN CORPUSCULAR HGB 30.6 PG (27.0-31.0); MEAN CORPUSCULAR HGB CONC 33.1 G/DL (33.0-37.0); MEAN CORPUSCULAR VOLUME 92.3 FL (81.0-99.0); PLATELET COUNT 233 /CUMM (130-400); RED BLOOD CELL CT 4.82 /CUMM (4.20-5.40); WHITE BLOOD CELL COUNT 7.6 /CUMM (4.8-10.8)
[2017-03-16 18:02] VITALS: BP 180/90
--- NOTE | 2017-03-16 18:11 | ED GENERAL ADULT ---
History of Present Illness General Chief Complaint: General Adult Stated Complaint: BIBA FOR UNRESPONSIVE Source: family, EMS Exam Limitations: unable to give history, not alert/orientated, clinical condition, confusion, physical impairment Vital Signs & Intake/Output Vital Signs & Intake/Output Vital Signs Date Time Temp Pulse Resp B/P B/P Pulse O2 O2 Flow FiO2 Mean Ox Delivery Rate 03/16 1802 96.9 87 10 180/90 100 Ventilator 03/16 1734 50 03/16 1707 94 188/96 100 Non ReBreather 03/16 1651 195/109 Allergies Coded Allergies: No Known Allergies (11/02/16) Reconcile Medications Alprazolam 0.25 MG TABLET 1 TAB PO BIDP PRN ANXIETY (Reported) Aspirin (Aspirin*) 81 MG TAB.CHEW 1 TAB PO DAILY HEART HEALTH Ca/D3/Mag#11/Zinc/Facilities Supervisor/Skinny/Bor (Caltrate 600+D Plus Tablet) 600 MG-800 TABLET 1 TAB PO DAILY SUPPLEMENT (Reported) Cholecalciferol (Vitamin D3) (Vitamin D) 5,000 UNIT TABLET 1 TAB PO DAILY VITAMIN D (Reported) Levothyroxine Sodium 75 MCG TABLET 1 TAB PO DAILY HYPOTHYROIDISM (Reported) Omeprazole 20 MG CAPSULE. 1 TAB PO AT BEDTIME HEART BURN Triage Note: PT BIBA FROM HOME AFTER BEING FOUND LYING ON FLOOR UNRESPONSIVE. PT WAS LAST SEEN NORMAL AT APPROXIMATELY 2130 HOURS YESTERDAY. PT PRESENTED TO ED UNRESPONSIVE. GCS 3. PT HAD MINOR SKIN TEAR TO R SHOULDER AND R FOREARM. PT WAS FOUND LYING ON R SIDE PER EMS. DR RUBY IMMEDIATLEY AT BEDSIDE FOR EVAL. PT MEDICATED WITH 0.4MG NARCAN WITH NO RESPONSE. PT TO CT VIA STRETCHER BY THIS RN. PT INTEMITENTLY HAS DECERABRATE AND DECORITCATE POSTURING. RESPIRATORY AND DR RUBY AT BEDSIDE FOR INTUBATION. PT MEDICATED WITH AMIDATE 10MG IVP. DR RUBY INTUBATED PT WITHOUT DIFFICULTY. REPIRATORY PLACED PT ON VENT. Triage Nurses Notes Reviewed? yes Onset: Abrupt Duration: unknown duration Timing: unknown HPI: 03/16/17 The patient was seen on arrival She is an 86-year-old female who is brought in by EMS for being unresponsive. According to EMS and the family who I spoke with personally, the patient was last seen normal at approximately 9:30 last night. The margotrt's family left for work early this morning and when they came home at approximately 4 PM they found her on the floor unresponsive. EMS was called and the patient was brought in. She did not have a gag reflex and she had decorticate posturing. Past History Travel History Traveled to [place] past 21 day No Medical History Any Pertinent Medical History? see below for history Cardiovascular: hypertension Psychiatric: anxiety Endocrine: hypothyroidism History of MRSA: No History of VRE: No History of CDIFF: No Surgical History Surgical History: N Psychosocial History Who do you live with Daughter Services at Home None What is your primary language Swedish Family History Family History, If Any: DAUGHTER Acute myocardial infarction Blood clots Hx Contributory? No Review of Systems Review of Systems Constitutional: Reports: no symptoms. EENTM: Reports: no symptoms. Respiratory: Reports: no symptoms. Cardiovascular: Reports: no symptoms. GI: Reports: no symptoms. Genitourinary: Reports: no symptoms. Musculoskeletal: Reports: no symptoms. Skin: Reports: no symptoms. Neurological/Psychological: Reports: confusion. Hematologic/Endocrine: Reports: no symptoms. Immunologic/Allergic: Reports: no symptoms. Physical Exam Physical Exam General Appearance: severe distress Head: atraumatic Ears, Nose, Throat: no gag reflex Neck: supple Respiratory: decreased breath sounds Cardiovascular: regular rate/rhythm Peripheral Pulses: 4+ radial (R), 4+ radial (L) Gastrointestinal: soft, non-tender Back: decreased range of motion Extremities: pedal edema Neurologic/Psych: unresponsive Skin: intact, normal color, warm/dry Core Measures ACS in differential dx? No CVA/TIA Diagnosis: Yes NIH Stroke Scale: Total 9 Dt/Tm Last Known Well: No Date Last Known Well: 03/15/17 Time Last Known Well: 2129 Neurological S/S of CVA: Acute Confusion Reason tPA not ordered: Medical Contraindication Severe Sepsis Present: No Septic Shock Present: No Progress Differential Diagnoses I considered the following diagnoses in my evaluation of the patient: [CVA, intracranial bleed, sepsis, drug overdose,] Plan of Care: Orders Procedure Date/time Status LACTIC ACID 03/16 2027 Active Restraint- Medical 03/16 174 Active LACTIC ACID 03/16 1747 Active Reyes, Insertion/Removal/Asses 03/16 1727 Active CULTURE,URINE 03/16 1727 Active URINE DRUG SCREEN FOR ER ONLY 03/16 1727 Active URINALYSIS 03/16 1727 Active TROPONIN LEVEL 03/16 1727 Active LACTIC ACID 03/16 172 Active D-DIMER 03/16 1727 Active COMPREHENSIVE METABOLIC PANEL 03/16 172 Active CBC WITHOUT DIFFERENTIAL 03/16 1727 Complete EKG 03/16 170 Active Laboratory Tests 03/16/17 1802: Methadone Screen Pending, Barbiturate Screen Pending, Ur Phencyclidine Scrn Pending, Amphetamines Screen Pending, U Benzodiazepines Scrn Pending, Urine Cocaine Screen Pending, Urine Cannabis Screen Pending, Urine Color Pending, Urine Clarity Pending, Urine pH Pending, Ur Specific Tornado Pending, Urine Protein Pending, Urine Ketones Pending, Urine Nitrite Pending, Urine Bilirubin Pending, Urine Urobilinogen Pending, Ur Leukocyte Esterase Pending, Ur Microscopic Pending, Urine Hemoglobin Pending, Urine Glucose Pending 03/16/17 1755: D-Dimer Pending 03/16/17 1747: Sodium Pending, Potassium Pending, Chloride Pending, Carbon Dioxide Pending, Anion Gap Pending, BUN Pending, Creatinine Pending, BUN/Creatinine Ratio Pending , Glucose Pending, Lactic Acid Pending, Calcium Pending, Total Bilirubin Pending , AST Pending, ALT Pending, Alkaline Phosphatase Pending, Troponin I Pending, Total Protein Pending, Albumin Pending, Globulin Pending, Albumin/Globulin Ratio Pending, CBC w Diff NO MAN DIFF REQ, RBC 4.82, MCV 92.3, MCH 30.6, RDW 13.0, MPV 8.0, Gran % 81.1 H, Lymphocytes % 13.1 L, Monocytes % 5.0, Eosinophils % 0.2, Basophils % 0.6, Absolute Granulocytes 6.2, Absolute Lymphocytes 1.0 L, Absolute Monocytes 0.4, Absolute Eosinophils 0, Absolute Basophils 0, PUBS MCHC 33.1 Microbiology 03/16 1802 URINE ROUT: Urine Culture - RECD Initial ED EKG: sinus tachycardia Departure Departure Disposition: OTHER GENERAL HOSPITAL (ACUTE) Condition: Stable Clinical Impression Primary Impression: CVA (cerebral vascular accident) Secondary Impressions: Respiratory failure Referrals: JANIE PERSON,JULIO CÉSAR Jewell (PCP/Family) Departure Forms: Customer Survey General Discharge Information Comments 03/16/17 6 pm I spoke with the tele-stroke neurologist at [place] Dr. Gordon. He accepted the patient for transfer for the possibility of early interventional therapy. I also spoke to the emergency department physician Dr. Piedra who is aware of the patient is coming. Procedure The patient was intubated with a size 7.5 endotracheal tube using the cane vision. 10 mg of etomidate was utilized to facilitate the procedure. There was good breath sounds bilaterally postintubation with no sounds over the stomach. There was good purple to yellow color exchange with the end-tidal CO2 monitor. Chest x-ray results shown below. IMPRESSION: Chronic changes. No acute pulmonary disease. Endotracheal tube terminates 4.5 cm above the taye. DICTATED BY: MADIE MARTINEZ MD DATE/TIME DICTATED:03/16/171747 WOOD MOLDER:JENNIFER DATE/TIME TRANSCRIBED:03/16/171747 CONFIDENTIAL, DO NOT COPY WITHOUT APPROPRIATE AUTHORIZATION. <Electronically signed in Other Vendor System> SIGNED BY: MADIE MARTINEZ MD 03/16/[address] negative Critical Care Note Critical Care Note Critical Care Time: 30-74 min
[2017-03-16] MEDS ORDERED: NITROGLYCERIN0.4 M1 SL (18:13)
[2017-03-16] MEDS ORDERED: METOPROLOL TART25 M1 PO (18:13)
== END 2017-03-16 18:36 | disposition short-term general hospital (02) ==
LOC: ERH 16:46
PROVIDERS: Emergency Medicine
DX: I63.9 Cerebral infarction, unspecified (principal); I10 Essential (primary) hypertension; F41.9 Anxiety disorder, unspecified; E03.9 Hypothyroidism, unspecified
CPT/HCPCS: 1344; 1387; 80307; 81001; 87040; 87086; 93005; 93010; 94799; 96374; 96375; 99291; G0480